=== PATIENT | male | born 1935 | race Caucasian/White ===

== ENCOUNTER 2017-07-02 02:39 | Inpatient (IN) ==
[2017-07-02] MEDS ORDERED: NS 1,000 ML IV ONE ×2 (02:59→04:03)
[2017-07-02] MEDS ORDERED: PIPERACILLIN/TAZOBACTAM 4.5 GM in NS 100 ML IV ONE (02:59)
[2017-07-02] MEDS ORDERED: SALINE FLUSH 10ml SYRINGE IVF PRN (02:59)
--- NOTE | 2017-07-02 03:06 | Emergency Department Report ---
Fever HPI - General Stated Complaint: Fever Time Seen by Provider: 07/02/17 02:58 Source: patient, EMS, old records reviewed, other (PCM) Mode of arrival: EMS Limitations: no limitations - History of Present Illness HPI Narrative: 82yo man presented to the ER by EMS for evaluation after a fall. Pt has had 1 week of nausea and fevers. Was evaluated by PCM 3 days ago and found to have elevated WBC and LFTs. When PCM made rounds 2 days ago, pt was improved. Tonight , pt became worse again. PCM is concerned about ascending cholangitis. Pt is mostly non-verbal. Is DNR. Left-sided hemiparesis at base. MD complaint: fever Onset (ago): day(s) Maximum Temperature: 103 F Temperature Source: oral Relieving factors: nothing Exacerbating factors: nothing Treatments prior to arrival fever: acetaminophen, ibuprofen - Related Data Home Medications Medication Instructions Recorded Confirmed Acetaminophen [Tylenol] 2 tab PO Q4HPRN #0 tab 01/02/16 07/02/17 Atorvastatin Calcium 1 tab PO HS #0 tab 01/02/16 07/02/17 Gabapentin 1 cap PO BID #0 cap 01/02/16 07/02/17 Insulin Detemir [Levemir] 12 dose SQ HS #0 vial 01/02/16 07/02/17 Tamsulosin HCl 0.4 mg PO DAILY #0 cap 01/02/16 07/02/17 Albuterol Sulfate 2.5 mg AEROSOL Q2HR PRN 07/02/17 07/02/17 Aspirin 1 tab PO DAILY 07/02/17 07/02/17 Docusate Sodium [Colace] 1 cap PO BID 07/02/17 07/02/17 Furosemide [Lasix] 1 tab PO DAILY 07/02/17 07/02/17 Lisinopril [Prinivil] 10 mg PO DAILY 07/02/17 07/02/17 Metoprolol Tartrate [Lopressor] 25 mg PO DAILY 07/02/17 07/02/17 Polyethylene Glycol 3350 [Miralax] 17 gm PO DAILY 07/02/17 07/02/17 dilTIAZem HCl [Diltiazem HCl] 1 tab PO TID 07/02/17 07/02/17 Allergies Allergy/AdvReac Type Severity Reaction Status Date / Time NKDA Allergy Unknown Uncoded 07/02/17 03:06 Review of Systems Limitations: ROS unobtainable due to patient's medical condition PFS Patient Stated Medical History Cerebrovascular Accident Yes: HEMIPLEGIA-FLACID LT Peripheral Neuropathy Yes: POLY Other HEENT SWALLOWING PROBLEMS, DYSPHAGIA Hypertension Yes Bronchitis Yes Sleep Apnea Yes Diabetes Mellitus Type 2 Yes Other GI Yes: CONSTIPATION Hx Benign Prostatic Yes Hyperplasia Hx Incontinence Yes Hx Urinary Tract Infection Yes Other RETENTION Cellulitis Yes Clostridium Difficile Yes: 11/20/16 Sepsis Yes: 11/20/16 Physical Exam - Limitations Limitations: no limitations - General General appearance: alert, obese - Normal Exams: Head:: Normocephalic without trauma Eyes:: Pupils are PERRLA w/ EOMI, No scleral icterus, irritation, or foreign bodies noted ENMT:: No facial trauma, nasal exudates, pharyngeal erythema, or exudates are noted Neck:: Full range of motion, without adenopathy Lymphatic:: No lymphadenopathy Musculoskeletal:: No tenderness, or deformity noted Integumentary:: No rashes, hives, or bruising noted Neurological:: Patient is alert Course - Consultations Consultation #1: Gen Surg: Will need admission for cont IV atbx; can surgerize if DPOA and PCM think it is worthwhile. Time: 05:50 Consultation #2: [facility] Telemed: Will accept/admit pt. Vital Signs Temperature 103 F H 07/02/17 02:40 Pulse Rate 121 H 07/02/17 02:40 Respiratory Rate 16 07/02/17 02:40 Blood Pressure 200/106 H 07/02/17 02:40 Pulse Oximetry 92 07/02/17 02:40 Temperature 100.3 F 07/02/17 05:00 Pulse Rate 100 07/02/17 05:30 Respiratory Rate 25 H 07/02/17 05:30 Blood Pressure 150/84 H 07/02/17 05:30 Pulse Oximetry 98 07/02/17 05:30 Fever - MDM Narrative Medical decision making narrative: Pt with cholelithiasis, cholecystitis, and likely pancreatic CA. Pt is DNR; has improved markedly with IVF. Will need continued IV atbx for infx. Will need to have conversation with PCM and DPOA to determine way ahead regarding dx. - Differential Diagnosis Likely: cellulitis, fever of unknown origin, gastroenteritis, community acquired pneumonia (HCAP), pyelonephritis, viral infection, sepsis, influenza - Medical Records Attestation: I reviewed the patient's medical records. - Lab Data Attestation: I reviewed the patient's lab results. Result diagrams: 07/02/17 03:17 07/02/17 03:17 Lab Results 07/02/17 07/02/17 07/02/17 Range/Units 03:17 03:17 03:17 WBC 21.6 H (4.5-11.0) T/MM3 RBC 4.94 (4.50-5.90) M/MM3 Hgb 14.6 (13.5-17.5) GM/DL Hct 44.3 (41-53) % MCV 89.7 (80-100) UM3 MCH 29.6 (26-34) UUG MCHC 33.0 (31-37) GM/DL RDW Std Deviation 47.3 (36.9-50.2) FL Plt Count 236 (130-400) T/MM3 MPV 11.6 (9.4-12.4) UM3 Immature Gran % (Auto) Not performed Neut % (Auto) Not performed Lymph % (Auto) Not performed [place] % (Auto) Not performed Eos % (Auto) Not performed Baso % (Auto) Not performed Neut # Not performed Lymph # Not performed [place] # Not performed Eos # Not performed Baso # Not performed Abs Immat Gran (auto) Not performed Neutrophils % (Manual) 86.0 H (33-66) % Band Neutrophils % 5.0 (0-6) % Lymphocytes % (Manual) 3.0 L (23-45) % Monocytes % (Manual) 6.0 (0-9.0) % Neutrophils # (Manual) 18.6 H (1.8-7.7) T/MM3 Band Neutrophils # 1.1 T/MM3 Lymphocytes # (Manual) 0.6 L (1-4.8) T/MM3 Monocytes # (Manual) 1.3 H (0-0.8) T/MM3 RBC Morph Comment Normal INR 1.29 H (0.99-1.21) Turbidity (0-20) Sodium (134-144) MEQ/L Potassium (3.6-5) MEQ/L Chloride (98-107) MEQ/L Carbon Dioxide (22-30) MEQ/L Anion Gap (5-15) MEQ/L BUN (9-20) MG/DL Creatinine (0.8-1.5) MG/DL GFR Calculation BUN/Creatinine Ratio (6-26) RATIO Glucose (75-110) MG/DL Calculated Osmolality (261-280) MOSM/KG Calcium (8.4-10.2) MG/DL Total Bilirubin (0.20-1.30) MG/DL Icterus Index (0-7) AST (17-59) U/L ALT (21-72) U/L Alkaline Phosphatase (38-126) U/L B-Natriuretic Peptide (0-175) pg/mL Total Protein (6.3-8.2) G/DL Albumin (3.5-5.0) G/DL Globulin (2.4-3.6) G/DL Albumin/Globulin Ratio (1.1-2.2) RATIO Lipase 26 (23-300) U/L Plasma Lactate 1.8 (0.6-2.2) MMOL/L Specimen Hemolysis (0-25) Ur Collection Type Urine Color (YELLOW) Urine Clarity Urine pH (5.0-8.0) Ur Specific [place] (1.015-1.025) Urine Protein (NEGATIVE) Urine Glucose (UA) (NEGATIVE) Urine Ketones (NEGATIVE) Urine Occult Blood (NEGATIVE) Urine Nitrate (NEGATIVE) Urine Bilirubin (NEGATIVE) Urine Urobilinogen (NORMAL) EU/DL Ur Leukocyte Esterase (NEGATIVE) Urine RBC (0-3) /HPF Urine WBC (0-5) /HPF Amorphous Sediment Urine Bacteria (NEGATIVE) Ur Culture Indicated? 07/02/17 07/02/17 Range/Units 03:17 03:29 WBC (4.5-11.0) T/MM3 RBC (4.50-5.90) M/MM3 Hgb (13.5-17.5) GM/DL Hct (41-53) % MCV (80-100) UM3 MCH (26-34) UUG MCHC (31-37) GM/DL RDW Std Deviation (36.9-50.2) FL Plt Count (130-400) T/MM3 MPV (9.4-12.4) UM3 Immature Gran % (Auto) Neut % (Auto) Lymph % (Auto) [place] % (Auto) Eos % (Auto) Baso % (Auto) Neut # Lymph # [place] # Eos # Baso # Abs Immat Gran (auto) Neutrophils % (Manual) (33-66) % Band Neutrophils % (0-6) % Lymphocytes % (Manual) (23-45) % Monocytes % (Manual) (0-9.0) % Neutrophils # (Manual) (1.8-7.7) T/MM3 Band Neutrophils # T/MM3 Lymphocytes # (Manual) (1-4.8) T/MM3 Monocytes # (Manual) (0-0.8) T/MM3 RBC Morph Comment INR (0.99-1.21) Turbidity < 20 (0-20) Sodium 145 H (134-144) MEQ/L Potassium 3.7 (3.6-5) MEQ/L Chloride 104 (98-107) MEQ/L Carbon Dioxide 26 (22-30) MEQ/L Anion Gap 15 (5-15) MEQ/L BUN 25.0 H (9-20) MG/DL Creatinine 1.4 (0.8-1.5) MG/DL GFR Calculation 49 BUN/Creatinine Ratio 18 (6-26) RATIO Glucose 187 H (75-110) MG/DL Calculated Osmolality 288 H (261-280) MOSM/KG Calcium 9.0 (8.4-10.2) MG/DL Total Bilirubin 1.60 H (0.20-1.30) MG/DL Icterus Index < 2 (0-7) AST 59 (17-59) U/L ALT 170 H (21-72) U/L Alkaline Phosphatase 255 H (38-126) U/L B-Natriuretic Peptide 1440 H (0-175) pg/mL Total Protein 7.9 (6.3-8.2) G/DL Albumin 4.1 (3.5-5.0) G/DL Globulin 3.8 H (2.4-3.6) G/DL Albumin/Globulin Ratio 1.1 (1.1-2.2) RATIO Lipase (23-300) U/L Plasma Lactate (0.6-2.2) MMOL/L Specimen Hemolysis 17 (0-25) Ur Collection Type Urine, clean catch Urine Color Yellow (YELLOW) Urine Clarity Clear Urine pH 5.5 (5.0-8.0) Ur Specific [place] 1.025 (1.015-1.025) Urine Protein 3+ A (NEGATIVE) Urine Glucose (UA) Negative (NEGATIVE) Urine Ketones Negative (NEGATIVE) Urine Occult Blood 3+ A (NEGATIVE) Urine Nitrate Negative (NEGATIVE) Urine Bilirubin 1+ A (NEGATIVE) Urine Urobilinogen 1.0 (NORMAL) EU/DL Ur Leukocyte Esterase Negative (NEGATIVE) Urine RBC 10-20 H (0-3) /HPF Urine WBC None seen (0-5) /HPF Amorphous Sediment Few Urine Bacteria None seen (NEGATIVE) Ur Culture Indicated? Cult not indicated - Radiology Data Attestation: I reviewed the patient's radiology results. CT Abd/Pelv: FINDINGS: Artifacts: Study is degraded by motion artifact in both upper extremities overlying the abdomen causing extensive streak artifact. Lower thorax: No acute findings. ABDOMEN: Liver: There is again noted a 2 cm hepatic cyst in the 6 hepatic segment. Liver is otherwise unremarkable. Gallbladder and bile ducts: Gallbladder is contracted and there is a subcentimeter gallstone. Gallbladder wall thickening present there is pericholecystic edema. No ductal dilation. Pancreas: Assessment of the pancreas is limited, however there are 2 cystic lesions identified which are new compared to prior study and are found in the tail of the pancreas measuring 1.6 x 1.8 cm and a second one is in the pancreatic neck measuring 2.2 x 1.8 cm. And is likely a pancreatic head cystic lesion measuring 1.4 x 1.3 cm. No ductal dilation. Spleen: Unremarkable. No splenomegaly. Adrenals: Unremarkable. No mass. Kidneys and ureters: Again noted is a simple large exophytic left lower renal pole cyst measuring 7.6 x 8.4 cm. Multiple additional bilateral simple renal cysts present. Mild to moderate bilateral diffuse renal cortical thinning. No solid mass. No hydronephrosis. Stomach and bowel: There is colonic diverticulosis, but no acute diverticulitis. No mucosal thickening. No obstruction. Appendix: Appendix is normal in caliber and there is no periappendiceal inflammatory changes. No evidence of acute appendicitis. PELVIS: Bladder: There is a Whitten catheter within a decompressed bladder. Bladder is unremarkable. Reproductive: Prostate gland is enlarged measuring 5.6 x 4.5 cm. ABDOMEN and PELVIS: Intraperitoneal space: Unremarkable. No free air. No significant fluid collection. Bones/joints: Multilevel thoracolumbar spondylosis present. There are multilevel moderate to severe spinal canal stenosis most significant at L3-4 vertebral level. Multilevel bilateral moderate to severe neural foraminal stenosis of the lumbar spine. No acute fracture. No dislocation. Soft tissues: Unremarkable. Vasculature: Unremarkable. No abdominal aortic aneurysm. Lymph nodes: Unremarkable. No enlarged lymph nodes. IMPRESSION: 1. Cholelithiasis, contracted thickened walled gallbladder and pericholecystic edema. Chronic cholecystitis cannot be excluded. 2. Multiple pancreatic cystic masses as described above. These may represent cystic neoplasm of pancreas such as central ductal or branch ductal mucinous neoplasm of pancreas. Much less likely considerations are pseudoaneurysms. 3. Other nonemergent findings as described above. Disposition Clinical Impression: Cholecystitis, Pancreatic cyst Cholelithiasis Qualifiers: Cholelithiasis location: gallbladder Cholecystitis presence: with cholecystitis Cholecystitis acuity: acute Biliary obstruction: with biliary obstruction Qualified Code(s): K80.01 - Calculus of gallbladder with acute cholecystitis with obstruction [place] [facility] [place] Prescriptions: No Action Atorvastatin Calcium 1 tab PO HS #0 tab Acetaminophen [Tylenol] 2 tab PO Q4HPRN #0 tab Gabapentin 1 cap PO BID #0 cap Lisinopril [Prinivil] 10 mg PO DAILY Metoprolol Tartrate [Lopressor] 25 mg PO DAILY Docusate Sodium [Colace] 1 cap PO BID Polyethylene Glycol 3350 [Miralax] 17 gm PO DAILY Aspirin 1 tab PO DAILY dilTIAZem HCl [Diltiazem HCl] 1 tab PO TID Albuterol Sulfate 2.5 mg AEROSOL Q2HR PRN PRN Reason: Shortness Of Air/Wheezing Insulin Detemir [Levemir] 12 dose SQ HS #0 vial Tamsulosin HCl 0.4 mg PO DAILY #0 cap Furosemide [Lasix] 1 tab PO DAILY Referrals: Christiano Garibay DO [Physician] - Christy Velarde MD [Physician] - Time of Disposition: 06:07 - Seen By: physician
--- OUTSIDE RECORDS SUMMARY | 2017-07-02 03:30 | External Medical Summary | Continuity of Care Document ---
:1935 Author Organization [facility] Allergies Active Description Code Type Severity Reaction Onset Reported/ Identified Relationship Clinical to Patient Status Yes No Allergy No Drug Unknown N/A 07/17/2015 Information Aller Aller Available gy gy Infor matio n Avail able Yes No Known No Drug Unknown N/A 07/17/2015 Allergies Known Aller Aller gy gies Yes No Known NKMA N/A N/A 11/13/2015 Allergies Medications Problems Date Dx Attending Type Code Diagnosis Diagnosed By Coded 07/17/2015 Jean HENSLEY, F E11.9 TYPE 2 DIABETES Ilene N MELLITUS WITHOUT COMPLICATIONS 07/17/2015 Jean HENSLEY, F E66.01 MORBID (SEVERE) Ilene N OBESITY DUE TO EXCESS CALORIES 07/17/2015 Jean HENSLEY, F G81.94 HEMIPLEGIA, Ilene N UNSPECIFIED AFFECTING LEFT NONDOMINANT 07/17/2015 Jean HENSLEY, F I12.9 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-4/UNSP 07/17/2015 Jean HENSLEY, F I61.1 NONTRAUMATIC INTCRBL Ilene N HEMORRHAGE IN HEMISPHERE, COR 07/17/2015 Jean HENSLEY, F I62.01 NONTRAUMATIC ACUTE Ilene N SUBDURAL HEMORRHAGE 07/17/2015 Jean HENSLEY, A I62.9 NONTRAUMATIC Ilene N INTRACRANIAL HEMORRHAGE, UNSPECIFIED 07/17/2015 Jean HENSLEY, F J69.0 PNEUMONITIS DUE TO Ilene N INHALATION OF FOOD AND VOMIT 07/17/2015 Jean HENSLEY, F M10.9 GOUT, UNSPECIFIED Ilene N 07/17/2015 Jean HENSLEY, F N18.2 CHRONIC KIDNEY Ilene N DISEASE, STAGE 2 (MILD) 07/17/2015 Jean HENSLEY, F R13.10 DYSPHAGIA, Ilene N UNSPECIFIED 07/17/2015 Jean HENSLEY, F Z68.28 BODY MASS INDEX Ilene N (BMI) 28.0-28.9, ADULT 11/13/2016 Venecia HENSLEY, F A41.9 SEPSIS, UNSPECIFIED Alin L ORGANISM 11/13/2016 Venecia HENSLEY, F E11.9 TYPE 2 DIABETES Alin L MELLITUS WITHOUT COMPLICATIONS 11/13/2016 Venecia HENSLEY, F E66.01 MORBID (SEVERE) Alin L OBESITY DUE TO EXCESS CALORIES 11/13/2016 Venecia HENSLEY, F E78.5 HYPERLIPIDEMIA, Alin L UNSPECIFIED 11/13/2016 Venecia HENSLEY, F G92 TOXIC ENCEPHALOPATHY Alin L 11/13/2016 Venecia HENSLEY, F I12.9 HYPERTENSIVE CHRONIC Alin L KIDNEY DISEASE W STG 1-4/UNSP 11/13/2016 Venecia HENSLEY, F I48.91 UNSPECIFIED ATRIAL Alin L FIBRILLATION 11/13/2016 Venecia HENSLEY, F K81.0 ACUTE CHOLECYSTITIS Alin L 11/13/2016 Venecia HENSLEY, F M10.9 GOUT, UNSPECIFIED Alin L 11/13/2016 Venecia HENSLEY, F N17.9 ACUTE KIDNEY Alin L FAILURE, UNSPECIFIED 11/13/2016 Venecia HENSLEY, F N18.3 CHRONIC KIDNEY Alin L DISEASE, STAGE 3 (MODERATE) 11/13/2016 Venecia HENSLEY, F N40.0 BENIGN PROSTATIC Alin L HYPERPLASIA WITHOUT LOWER URINRY 11/13/2016 Venecia HENSLEY, Soren R10.9 UNSPECIFIED Alin L ABDOMINAL PAIN 11/13/2016 Venecia HENSLEY, F R65.20 SEVERE SEPSIS Alin L WITHOUT SEPTIC SHOCK 11/13/2016 Venecia HENSLEY, F Z66 DO NOT RESUSCITATE Alin L 11/13/2016 Venecia HENSLEY, F Z68.29 BODY MASS INDEX Alin L (BMI) 29.0-29.9, ADULT 11/13/2016 Venecia HENSLEY, F 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 11/13/2016 Venecia HENSLEY, F 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), 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 Procedures Code Description Performed By Performed On 07/17/2015 [id number] INSERTION OF FEEDING DEVICE INTO STOMACH, Robin Banks MD 11/13/2016 [id number] DRAINAGE OF GALLBLADDER WITH DRAINAGE DEVICE, [facility] 11/25/2016 [id number] Subsequent nursing facility care, per day, for the evaluation and management of a patient, which requires at least 2 of these 3 kumar components: A detailed interval history; A detailed examination; Med 03/31/2017 [id number] Subsequent nursing facility care, per day, for the evaluation and management of a patient, which requires at least 2 of these 3 kumar components: A problem focused interval history; A problem focused ex 05/26/2017 [id number] Subsequent nursing facility care, per day, for the evaluation and management of a patient, which requires at least 2 of these 3 kumar components: A problem focused interval history; A problem focused ex Encounters ACCT No. Visit Discharge Status Pt. Type Provider Facility Loc./Unit Complaint Date/Time [id number] 06/28/2017 06/28/2017 DIS Outpatien Goering, [facility] fever. 05 11:15:00 23:59:00 [facility] urine. itchy. rash on groin [id number] 05/26/2017 05/26/2017 DIS Outpatien Goering, [facility] nh visit 96 10:09:00 23:59:00 t [facility] [id number] 04/01/2017 04/01/2017 DIS Outpatien Goering, [facility] nursing 84 14:39:00 23:59:00 t [facility] [id number] 11/25/2016 11/25/2016 DIS Outpatien Goering, [facility] NHV [place] 26 15:01:00 23:59:00 t [facility] 2.15.17 [id number] 01/02/2016 01/02/2016 DIS Outpatien Ryder, [facility] HOARSE 01 10:16:00 23:59:00 [facility] THROAT AND TEMP [id number] 11/13/2015 11/13/2015 DIS Outpatien Ryder, [facility] cellulitus 60 13:28:00 23:59:00 [facility] head.ear [id number] 11/13/2016 11/20/2016 DIS Inpatient Venecia Strat[place]7TN 98 08:32:00 13:23:[address] [facility] [id number] 07/17/2015 08/01/2015 DIS Inpatient Jean Stratton10TN 13 12:44:00 15:34:00 , [facility]
--- OUTSIDE RECORDS SUMMARY | 2017-07-02 03:30 | External Medical Summary | Summary of Care ---
:1935 Author Name Herminia COOK Mana Address [address] Unavailable [place], [place] [id number] Care Team Providers Name Role Phone Sean Sim M.D. Unavailable Unavailable aMna Hope APRN Unavailable Unavailable Unavailable Unavailable Unavailable Functional Status Functional Status Health Issues Name Dates Details Functional status health issues are not documented Status: Cognitive Status Health Issues Name Dates Details Cognitive status health issues are not documented Status: Problems Name Dates Details Gout (274.9, M10.9) Status: Active Acute upper respiratory infection (465.9, J06.9) Status: Active Medications Name Dates Details Triamterene-HCTZ 75-50 MG Oral Tablet Refills: 0 Ortiz Sim M.D. Started 21-Jul-2011 ActiveLisinopril 20 MG Oral Tablet Refills: 0 Ortiz Sim M.D. Started 21-Jul-2011 ActivePropranolol HCl - 80 MG Oral Tablet Refills: 0 Ortiz Sim M.D. Started 21-Jul-2011 ActiveAmoxicillin-Pot Clavulanate 875-125 MG Oral Tablet 1 tablet BID x 10 days Quantity: 20 Refills: 0 Mana Hope APRN Started 15-Jan-2015 Ended 25-Jan-2015 Active Allergies and Adverse Reactions Name Dates Details Codeine Derivatives Status: Active Procedures Procedure Dates Details Procedures not documented Immunization Name Dates Details Immunizations not documented Social History Name Dates Details Smoking StatusNever smoker Vital Signs Date Test Result Details 15-Jan-2015 12:13 BP Systolic 182 mm[Hg] Status: BP Diastolic 115 mm[Hg] Status: Heart Rate 100 /min Status: Temperature 100.2 f Status: Weight 225 lb Status: O2 SAT 98 % Status: Body Mass Index Calculated 33.23 kg/m2 Status: Body Surface Area Calculated 2.17 m2 Status: Results Date Description Value Details Results not documented Plan of Care Planned Observations Name Dates Details Planned Goals not documented Goal Instructions Instructions not documented Encounters Appointment; Mana Hope On 15-Jan-2015 Encounter Diagnosis: Problem not documented 12:05 Appointment; Joaquim De La Torre On 08-Sep-2014 Encounter Diagnosis: Problem not documented 12:30
--- OUTSIDE RECORDS SUMMARY | 2017-07-02 03:30 | External Medical Summary | Referral Summary ---
:1935 Author Organization [facility] Address [address] [place] [address] [place] [id number] Care Team Providers Name Role Phone Erlin Garza V Primary Care Physician Encounter VC Date(s): 11/13/15 - 11/13/15 [facility] [address] [place] [id number]- Discharge Diagnosis: Cellulitis Discharge Disposition: 01-Home or Self Care Attending Physician: Jose Ryder APRN Admitting Physician: Jose Ryder APRN Vital Signs Most recent to oldest [Reference Range]: 1 Temperature Tympanic [36.6-38.1 degC] 37.7 degC (11/13/15 1:50 PM) Peripheral Pulse Rate [60-100 bpm] 78 bpm (11/13/15 1:50 PM) Respiratory Rate [14-20 br/min] 18 br/min (11/13/15 1:50 PM) Blood Pressure [90-140/60-90 mmHg] 120/68 mmHg (11/13/15 1:50 PM) SpO2 92 % (11/13/15 1:50 PM) Problem List No data available for this section Allergies, Adverse Reactions, Alerts No Known Allergies Medications albuterol 2.5 mg/3 mL (0.083%) inhalation solution 2.5 mg 3 mL, Inhalation, q2hr, as needed for wheezing, 0 Refill(s) Start Date: 11/13/15 Status: OrderedamLODIPine 2.5 mg oral tablet 2.5 mg 1 tabs, Oral, Daily, # 30 tabs, 0 Refill(s) Start Date: 11/13/15 Status: Orderedatorvastatin 80 mg oral tablet 80 mg 1 tabs, Oral, Daily, # 30 tabs, 0 Refill(s) Start Date: 11/13/15 Status: Ordereddocusate sodium 100 mg oral capsule 100 mg 1 caps, Oral, BID, as needed for constipation, # 20 caps, 0 Refill(s) Start Date: 11/13/15 Status: Orderedgabapentin 300 mg oral capsule 300 mg 1 caps, Oral, BID, # 60 caps, 0 Refill(s) Start Date: 11/13/15 Status: OrderedhydrALAZINE 25 mg oral tablet 25 mg 1 tabs, Oral, TID, # 90 tabs, 0 Refill(s) Start Date: 11/13/15 Status: OrderedLasix 20 mg oral tablet 20 mg 1 tabs, Oral, Daily, # 90 tabs, 0 Refill(s) Start Date: 11/13/15 Status: Orderedlisinopril 20 mg oral tablet 20 mg 1 tabs, Oral, Daily, # 30 tabs, 0 Refill(s) Start Date: 11/13/15 Status: Orderedmetoprolol tartrate 50 mg oral tablet 50 mg 1 tabs, Oral, BID, # 60 tabs, 0 Refill(s) Start Date: 11/13/15 Status: Orderedtamsulosin 0.4 mg oral capsule 0.4 mg 1 caps, Oral, Daily, # 30 caps, 0 Refill(s) Start Date: 11/13/15 Status: OrderedTylenol Caplet 325 mg, Oral, q4hr, as needed for pain, 2 tabs, 0 Refill(s) Start Date: 11/13/15 Status: Ordered Results Hematology Most recent to oldest [Reference Range]: 1 WBC [4.8-10.8 10*3/uL] 19.2 10*3/uL *HI* (11/13/15 3:05 PM) RBC [4.60-6.20] 4.59 *LOW* (11/13/15 3:05 PM) Hgb [14.0-18.0 gm/dL] 14.3 gm/dL (11/13/15 3:05 PM) Hct [42.0-52.0 %] 43.1 % (11/13/15 3:05 PM) MCV [82.0-99.0 fL] 93.9 fL (11/13/15 3:05 PM) MCH [27.0-32.0 pg] 31.2 pg (11/13/15 3:05 PM) MCHC [32.0-36.0 gm/dL] 33.2 gm/dL (11/13/15 3:05 PM) RDW [11.5-14.5 %] 14.1 % (11/13/15 3:05 PM) Platelet [150-400 10*3/uL] 252 10*3/uL (11/13/15 3:05 PM) MPV [8.8-14.8 fL] 11.6 fL (11/13/15 3:05 PM) Immature Granulocytes [0.0-1.0 %] 0.5 % (11/13/15 3:05 PM) Neutrophils [51-75 %] 78 % *HI* (11/13/15 3:05 PM) Lymphocytes [20-46 %] 8 % *LOW* (11/13/15 3:05 PM) Monocytes [4-11 %] 10 % (11/13/15 3:05 PM) Eosinophils [0-4 %] 3 % (11/13/15 3:05 PM) Basophils [0-2 %] 0 % (11/13/15 3:05 PM) Neutro Absolute [1.90-7.00 10*3] 14.90 10*3 *HI* (11/13/15 3:05 PM) Lymph Absolute [0.80-3.30 10*3] 1.61 10*3 (11/13/15 3:05 PM) [place] Absolute [0.30-1.00 10*3] 2.00 10*3 *HI* (11/13/15 3:05 PM) Eos Absolute [0.00-0.50 10*3] 0.51 10*3 *HI* (11/13/15 3:05 PM) Baso Absolute [0.00-0.20 10*3] 0.04 10*3 (11/13/15 3:05 PM) Chemistry Most recent to oldest [Reference Range]: 1 Sodium Lvl [135-144 mEq/L] 144 mEq/L (11/13/15 3:05 PM) Potassium Lvl [3.5-5.2 mEq/L] 3.8 mEq/L (11/13/15 3:05 PM) Chloride [99-111 mEq/L] 104 mEq/L (11/13/15 3:05 PM) CO2 [23-31 mEq/L] 28 mEq/L (11/13/15 3:05 PM) AGAP [3-20] 12 (11/13/15 3:05 PM) BUN [8-26 mg/dL] 21 mg/dL (11/13/15 3:05 PM) Glucose Lvl [70-99 mg/dL] 123 mg/dL *HI* (11/13/15 3:05 PM) Creatinine Lvl [0.72-1.25 mg/dL] 1.34 mg/dL *HI* (11/13/15 3:05 PM) eGFR [>60 mL/min] 51 mL/min 1 *ABN* (11/13/15 3:05 PM) Calcium Lvl [8.9-10.5 mg/dL] 9.2 mg/dL (11/13/15 3:05 PM) 1Result Comment: Multiply eGFR results by 1.21 for race. Immunizations No data available for this section Procedures No data available for this section Social History Social History Type Response Smoking Status Never smoker Assessment and Plan No data available for this section
--- OUTSIDE RECORDS SUMMARY | 2017-07-02 03:30 | External Medical Summary | Referral Summary ---
:1935 Author Organization [facility] Address [address] [place] [address] [place] [phone] Care Team Providers Name Role Phone Erlin Garza V Primary Care Physician Encounter VC Date(s): 11/25/16 - 11/25/16 [facility] [place] [id number]- Discharge Disposition: 01-Home or Self Care Attending Physician: Erlin Garza MD Admitting Physician: Erlin Garza MD Vital Signs No data available for this section Problem List Condition Effective Dates Status Health Status Informant Methicillin resistant Staphylococcus Active aureus(Confirmed)1 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 Allergies, Adverse Reactions, Alerts No Known Allergies Medications albuterol 2.5 mg/3 mL (0.083%) inhalation solution 2.5 mg 3 mL, Inhalation, q2hr, as needed for wheezing, 0 Refill(s) Start Date: 11/13/15 Status: OrderedamLODIPine 2.5 mg oral tablet See Instructions, TAKE ONE TABLET BY MOUTH EVERY DAY, # 30 tabs, 5 Refill(s), eRx: [facility], TAKE ONE TABLET BY MOUTH EVERY DAY Start Date: 03/18/16 Status: Orderedatorvastatin 80 mg oral tablet See Instructions, TAKE ONE TABLET BY MOUTH AT BEDTIME, # 30 tabs, 5 Refill(s), [facility] Start Date: 09/22/16 Status: Ordereddextromethorphan-guaiFENesin 5 mg-100 mg/5 mL oral liquid 5 mL, Oral, q6hr, as needed for cough, 0 Refill(s) Start Date: 01/07/16 Status: TrckbinBmx-M-Fqyz 100 mg oral capsule See Instructions, TAKE ONE CAPSULE BY MOUTH TWICE DAILY, # 60 caps, eRx: [facility] Start Date: 10/23/16 Status: Orderedfurosemide 20 mg oral tablet See Instructions, TAKE ONE TABLET BY MOUTH EVERY DAY, # 30 tabs, 5 Refill(s), eRx: [facility] Start Date: 09/22/16 Status: Orderedgabapentin 300 mg oral capsule See Instructions, TAKE ONE CAPSULE BY MOUTH TWICE DAILY, # 60 caps, 11 Refill(s) , eRx: [facility], TAKE ONE CAPSULE BY MOUTH TWICE DAILY Start Date: 04/23/16 Status: OrderedhydrALAZINE 25 mg oral tablet 25 mg 1 tabs, Oral, TID, # 90 tabs, 0 Refill(s) Start Date: 11/13/15 Status: OrderedLevemir 12 units, SubCutaneous, Bedtime (once a day), 0 Refill(s) Start Date: 01/07/16 Status: Orderedlisinopril 20 mg oral tablet See Instructions, TAKE ONE TABLET BY MOUTH EVERY DAY, # 30 tabs, 2 Refill(s), eRx: [facility], TAKE ONE TABLET BY MOUTH EVERY DAY Start Date: 09/14/16 Status: OrderedMetoprolol Tartrate 50 mg oral tablet See Instructions, TAKE ONE TABLET BY MOUTH EVERY TWELVE HOURS (Hold FOR H.R. &lt ; 55, SBP <120), # 60 tabs, 11 Refill(s), eRx: [facility], TAKE ONE TABLET BY MOUTH EVERY TWELVE HOURS (HoldFOR H.R. < 55, SBP <120) Start Date: 04/23/16 Status: Orderedtamsulosin 0.4 mg oral capsule See Instructions, TAKE ONE CAPSULE BY MOUTH EVERY DAY, # 30 caps, 2 Refill(s), eRx: [facility], TAKE ONE CAPSULE BY MOUTH EVERY DAY Start Date: 09/14/16 Status: OrderedTylenol Caplet 325 mg, Oral, q4hr, as needed for pain, 2 tabs, 0 Refill(s) Start Date: 11/13/15 Status: Ordered Results No data available for this section Immunizations No data available for this section Procedures No data available for this section Social History Social History Type Response Smoking Status Never smoker Assessment and Plan No data available for this section
--- OUTSIDE RECORDS SUMMARY | 2017-07-02 03:30 | External Medical Summary | Referral Summary ---
:1935 Author [facility] Address [address] [place] [address] [place] [phone] Care Team Providers Name Role Phone Erlin Garza V Primary Care Physician Encounter VC Date(s): 01/02/16 - 01/02/16 [facility] [place] [phone]- Discharge Disposition: 01-Home or Self Care Attending Physician: Jose Ryder APRN Admitting Physician: Jose Ryder APRN Referring Physician: Erlin Garza MD Vital Signs Most recent to oldest [Reference Range]: 1 Temperature Tympanic [36.6-38.1 degC] 38.2 degC *HI* (01/02/16 10:20 AM) Peripheral Pulse Rate [60-100 bpm] 116 bpm *HI* (01/02/16 10:20 AM) Blood Pressure [90-140/60-90 mmHg] 160/100 mmHg *HI* (01/02/16 10:20 AM) SpO2 93 % (01/02/16 10:20 AM) Problem List Condition Effective Dates Status Health Status Informant Methicillin resistant Staphylococcus Active aureus(Confirmed)1 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 Allergies, Adverse Reactions, Alerts No Known Allergies [...] recent to oldest [Reference Range]: 1 WBC [5.0-10.0 10*3/uL] 11.5 10*3/uL *HI* (01/02/16 11:15 AM) RBC [3.70-5.20] 4.88 (01/02/16 11:15 AM) Hgb [12.0-16.0 gm/dL] 15.2 gm/dL (01/02/16 11:15 AM) Hct [40.0-54.0 %] 44.9 % (01/02/16 11:15 AM) MCV [80.0-96.0 fL] 92.0 fL (01/02/16 11:15 AM) MCH [26.0-34.0 pg] 31.1 pg (01/02/16 11:15 AM) MCHC [32.0-36.0 gm/dL] 33.9 gm/dL (01/02/16 11:15 AM) RDW [0.0-14.5 %] 14.4 % (01/02/16 11:15 AM) Platelet [150-400 10*3/uL] 195 10*3/uL (01/02/16 11:15 AM) MPV [8.8-14.8 fL] 10.7 fL (01/02/16 11:15 AM) Neutrophils [50-70 %] 82 % *HI* (01/02/16 11:15 AM) Lymphocytes [20-40 %] 5 % *LOW* (01/02/16 11:15 AM) Monocytes [4-8 %] 11 % *HI* (01/02/16 11:15 AM) Eosinophils [0-6 %] 1 % (01/02/16 11:15 AM) Basophils [0-2 %] 0 % (01/02/16 11:15 AM) Neutro Absolute [2.50-7.00 10*3] 9.42 10*3 *HI* (01/02/16 11:15 AM) Lymph Absolute [1.00-4.00 10*3] 0.62 10*3 *LOW* (01/02/16 11:15 AM) [place] Absolute [0.20-0.80 10*3] 1.26 10*3 *HI* (01/02/16 11:15 AM) Eos Absolute [0.00-0.60 10*3] 0.16 10*3 (01/02/16 11:15 AM) Baso Absolute [0.00-0.30] 0.03 (01/02/16 11:15 AM) Chemistry Most recent to oldest [Reference Range]: 1 Sodium Venous [136-145 mmol/L] 143 mmol/L (01/02/16 11:15 AM) Potassium Venous [3.5-5.1 mmol/L] 3.6 mmol/L 1 (01/02/16 11:15 AM) Calcium Ionized Venous [1.10-1.30 mmol/L] 1.10 mmol/L (01/02/16 11:15 AM) Total CO2 Venous [24-29 mmol/L] 23 mmol/L *LOW* (01/02/16 11:15 AM) Glucose Venous [70-100 mg/dL] 157 mg/dL *HI* (01/02/16 11:15 AM) BUN Venous [8-26] 16 (01/02/16 11:15 AM) Creatinine Venous [0.7-1.3 mg/dL] 1.2 mg/dL (01/02/16 11:15 AM) Venous CL [98-109 mmol/L] 106 mmol/L (01/02/16 11:15 AM) 1Result Comment: This test was performed on a whole blood specimen. The presence or absence of hemolysis cannot be assessed. Hemolysis can falsely elevate potassium levels. Normals are for venous specimens only. Immunizations No data available for this section Procedures No data available for this section Social History Social History Type Response Smoking Status Never smoker Assessment and Plan No data available for this section
[2017-07-02] MEDS ORDERED: NS 100 ML ONE (04:24)
[2017-07-02] MEDS ORDERED: IODIXANOL 320mg/ml 100ml INJECTION IV ONE (04:25)
[2017-07-02] MEDS ORDERED: SALINE FLUSH 10ml SYRINGE ONE (04:25)
--- NOTE | 2017-07-02 07:48 | XRay Report ---
INDICATION: Fever PROCEDURE: CHEST 2-VIEWS UPRIGHT (PA & LAT) Encounter: Initial COMPARISON: January 02, 2016 FINDINGS: Lungs are hypoinflated with some mild basilar atelectasis and bronchovascular crowding. No consolidative lobar pneumonia. No pleural effusion or pneumothorax. Cardiac silhouette remains mildly enlarged. Mediastinal contours are stable. Impression: Hypoinflation. .
[2017-07-02] MEDS ORDERED: MORPHINE SULFATE 4 MG SYRINGE IVP PRN (07:50)
--- NOTE | 2017-07-02 07:52 | CT Scan Report ---
Indication: Fever, elev LFTs PROCEDURE: CT abdomen pelvis w con: Encounter: Initial Comparison: March 16, 2011 Technique: Axial CT images were performed through the abdomen and pelvis after the administration of intravenous contrast. Coronal and sagittal two-dimensional reformats. Automated Exposure Control and Iterative Reconstruction dose reducing techniques were utilized. Contrast: Visipaque 320 100 mL Findings: The lung bases show mild atelectasis. Cardiomegaly. Liver shows a small inferior cyst in the right lobe. Mild intrahepatic bile duct prominence probably related to age. Gallstone within the gallbladder. Slight pericholecystic inflammation or gallbladder wall edema. The spleen is normal. 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 There is a stable cyst in the uncinate process. Large bilateral renal cysts, showing interval growth since the prior study. No abdominal or pelvic lymphadenopathy. Whitten catheter within a decompressed bladder. Mild prostate enlargement. Sigmoid diverticulosis without diverticulitis. No bowel obstruction. The appendix is normal. Bone windows show no acute findings. Impression: 1. Cholelithiasis with possible gallbladder wall thickening versus decompressed state. Consider right upper quadrant ultrasound for further evaluation. 2. 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 There is a preliminary report by [facility]. .
--- NOTE | 2017-07-02 07:57 | History & Physical Report ---
<LambertAkilah D - Last Filed: 07/02/17 09:41> History of Present Illness Date: 07/02/17 Chief complaint: nausea and vomiting HPI: Niles Johnston is an 82 y/o male who Dr. Garza has been following recently because of fevers and n/v. He has had temps up to 102.3 at [place], and labs on showed elevations in LFTs: ALT 508, AST 256, AP 319, Total bili 3.5. WBC on that day was 13.8. His symptoms progressed and he was evaluated at [facility] on 07/02/17. Here, WBC was 21.6 with bands 5%; 2nd lactate trended up to 2.2; LFTs were high but improved from earlier: AST 59, ALT 170, AP 255; Total bili 1.6, INR 1.29. 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 He received IVF and was started on Zosyn. Dr. Lopez and the hospitalist department were both contacted and the patient was admitted for treatment of suspected severe sepsis and to further investigate the pancreatic abnormalities. The patient was seen in his room with his and his daughter. He was very tired after being up most of the night, and slept through most of my visit. He did, however awaken briefly to answer some questions, and his responses were appropriate. His N/V started 5 days ago (06/28); he's had intermittent fevers for about 2 weeks. Staff noticed he complained of generalized pain when they helped him move. They've been trying to push oral fluids. He's been very tired. Skin color has been jaundiced and per Dr. Garza's note he has had orange- colored urine. Per family, he was hospitalized for Cholecystitis in November - seen at [facility] but surgeons opted not to remove GB (not a surgical candidate). We reviewed labs and CT findings - pt was unable to make a decision to proceed with testing vs. comfort care strategy regarding possible pancreatic cancer. In discussion with his son/DPOA, he would like to have more testing done to make more informed decisions regarding treatment and goals of care. Review of Systems ROS unobtainable: due to mental status - Constitutional Constitutional: Present: fever(s) - EENMT Nose: Present: allergies, other (sinus drainage) Mouth/Throat: Present: other (dysphagia chronic ) - Cardiovascular Vascular: Present: pedal edema - Respiratory Respiratory: Present: cough (from sinus drainage) - Gastrointestinal Gastrointestinal: Present: as per HPI - Genitourinary Genitourinary: Present: as per HPI - Musculoskeletal Musculoskeletal: Present: as per HPI, other (does not ambulate) - Integumentary/Breasts Integumentary: Present: jaundice - Neurological Neurological: Absent: confusion - Psychiatric Psychiatric: Absent: anxiety, depression - Endocrine Endocrine: Present: flushing (today) - Allergic/Immunologic Allergic/Immunologic: Present: seasonal rhinorrhea PFSH Hypertension Diabetes type 2 Gout. CKD stage III. 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 Small left subdural hemorrhage Prostate cancer s/p radiation 2002 A-fib with RVR when hospitalized at [facility] in 11/2016 - gb sono showed cholelithiasis without cholecystitis & no pancreatic abnormalities; fatty infiltration of the liver; but abdominal CT showed acute cholecystitis ( pancreas was grossly normal); possible proctitis Surgical History: Perc cholecystostomy 11/2016. Peg tube inserted/removed Family History: Positive for stroke, cancer. Brother has bone cancer - Social History Smoking status: Never smoker Substance use type: does not use Alcohol intake frequency: does not drink Current occupational status: retired Medications Home Medications Medication Instructions Recorded Confirmed Type Acetaminophen [Tylenol] 2 tab PO Q4HPRN #0 tab 01/02/16 07/02/17 History Atorvastatin Calcium 1 tab PO HS #0 tab 01/02/16 07/02/17 History Gabapentin 1 cap PO BID #0 cap 01/02/16 07/02/17 History Insulin Detemir [Levemir] 12 dose SQ HS #0 vial 01/02/16 07/02/17 History Tamsulosin HCl 0.4 mg PO DAILY #0 cap 01/02/16 07/02/17 History Albuterol Sulfate 2.5 mg AEROSOL Q2HR PRN 07/02/17 07/02/17 History Aspirin 1 tab PO DAILY 07/02/17 07/02/17 History Docusate Sodium [Colace] 1 cap PO BID 07/02/17 07/02/17 History Furosemide [Lasix] 1 tab PO DAILY 07/02/17 07/02/17 History Lisinopril [Prinivil] 10 mg PO DAILY 07/02/17 07/02/17 History Metoprolol Tartrate [Lopressor] 25 mg PO DAILY 07/02/17 07/02/17 History Polyethylene Glycol 3350 [Miralax] 17 gm PO DAILY 07/02/17 07/02/17 History dilTIAZem HCl [Diltiazem HCl] 1 tab PO TID 07/02/17 07/02/17 History Allergies Allergy/AdvReac Type Severity Reaction Status Date / Time No Known Allergies Allergy Verified 07/02/17 08:24 Exam Vital Signs: Temperature 100.3 F 07/02/17 05:00 Pulse Rate 103 H 07/02/17 07:15 Respiratory Rate 25 H 07/02/17 07:15 Blood Pressure 164/93 H 07/02/17 07:15 Pulse Oximetry 98 07/02/17 07:15 - Constitutional Present: no acute distress, obese - Routine HEENT Exam Head: Present: cushingoid faces Eye: Present: conjunctival icterus ENT: Present: mucous membranes dry, oropharynx clear - Routine Neck Exam Present: supple - Routine Respiratory Exam Present: CTA bilaterally, diminished air movement - Routine Cardiovascular Exam Present: RRR, S1, S2 - Routine Abdominal Exam Present: soft, normoactive bowel sounds, distended (mild) - Routine Extremities Exam Present: edema (1+ b/l), pulses intact, normal capillary refill - Routine Skin Exam Present: pallor - Routine Neurological Exam Present: oriented X3. Absent: alert - Routine Psychiatric Exam Present: unable to assess Results - Labs CBC & Chem 7: 07/02/17 03:17 07/02/17 03:17 - Imaging and Cardiology CT scan - abdomen Additional comments: Date of Exam: 07/02/17 Type of Exam(s): CT abdomen pelvis w con Findings: The lung bases show mild atelectasis. Cardiomegaly. Liver shows a small inferior cyst in the right lobe. Mild intrahepatic bile duct prominence probably related to age. Gallstone within the gallbladder. Slight pericholecystic inflammation or gallbladder wall edema. The spleen is normal. 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 There is a stable cyst in the uncinate process. Large bilateral renal cysts, showing interval growth since the prior study. No abdominal or pelvic lymphadenopathy. Whitten catheter within a decompressed bladder. Mild prostate enlargement. Sigmoid diverticulosis without diverticulitis. No bowel obstruction. The appendix is normal. Bone windows show no acute findings. Impression: 1. Cholelithiasis with possible gallbladder wall thickening versus decompressed state. Consider right upper quadrant ultrasound for further evaluation. 2. 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 Assessment and Plan (1) Severe sepsis Current visit: Yes Status: Acute DVT Prophylaxis: SCD's Resuscitation Status: Do Not Resuscitate Assessment and Plan: IMPRESSION Severe sepsis based on lactate of 2.2 and SIRS criteria of fever, leukocytosis, tachycardia, tachypnea (2012 guidelines) Cholelithiasis with suspected chronic cholecystitis Elevated LFTs and coagulopathy with INR of 1.29 - LFTs trending down from outpatient setting Hypertension Diabetes type 2 Gout. CKD stage III. 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 Small left subdural hemorrhage Prostate cancer s/p radiation 2002 A-fib with RVR when hospitalized at [facility] in 11/2016 - gb sono showed cholelithiasis without cholecystitis & no pancreatic abnormalities; fatty infiltration of the liver; but abdominal CT showed acute cholecystitis ( pancreas was grossly normal); possible proctitis PLAN Admit, inpt status under Dr. Andrea. IVF: He had 2L of IVF bolused in the ED. He is not hypotensive nor is lactate > 4 to suggest shock. Will hold off on additional IVF at this time. 2nd lactate was high at 2.2 - will repeat later this am. Check procalcitonin. UA and CXR neg for infection. Follow results of blood cultures. Zosyn empirically. Suspected source for sepsis is GB. Consult Dr. Lopez - alayna discussed in depth with him. He reviewed CT with Dr. Wright - pancreatic cancer is actually a very very low probability. Consult Dr. Walter - alayna discussed with him. NPO; pain and nausea meds available PRN. Home meds - hold insulin and oral meds. Start metoprolol 5 mg IV q6h for elevated bp. Check BGM QID, have SSI available. Likely can DC Whitten soon. Discussed with family and with his son Pradip (DPOA) who is in [place] - proceed with workup so they can make informed decisions about treatment. DNR. Hospital Course Summary Disclaimer: The visit summary below is not to be considered part of the above Progress Note. Hospital Course: 07/02/17 IMPRESSION Severe sepsis based on lactate of 2.2 and SIRS criteria of fever, leukocytosis, tachycardia, tachypnea (2012 guidelines) Cholelithiasis with suspected chronic cholecystitis Elevated LFTs and coagulopathy with INR of 1.29 - LFTs trending down from outpatient setting Hypertension Diabetes type 2 Gout. CKD stage III. 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 Small left subdural hemorrhage Prostate cancer s/p radiation 2002 A-fib with RVR when hospitalized at [facility] in 11/2016 - gb sono showed cholelithiasis without cholecystitis & no pancreatic abnormalities; fatty infiltration of the liver; but abdominal CT showed acute cholecystitis ( pancreas was grossly normal); possible proctitis PLAN Admit, inpt status under Dr. Andrea. IVF: He had 2L of IVF bolused in the ED. He is not hypotensive nor is lactate > 4 to suggest shock. Will hold off on additional IVF at this time. 2nd lactate was high at 2.2 - will repeat later this am. Check procalcitonin. UA and CXR neg for infection. Follow results of blood cultures. Zosyn empirically. Suspected source for sepsis is GB. Consult Dr. Lopez - case discussed in depth with him. He reviewed CT with Dr. Wright - pancreatic cancer is actually a very very low probability. Consult Dr. Walter - alayna discussed with him. NPO; pain and nausea meds available PRN. Home meds - hold insulin and oral meds. Start metoprolol 5 mg IV q6h for elevated bp. Check BGM QID, have SSI available. Likely can DC Whitten soon. Discussed with family and with his son Pradip (DPOA) who is in [place] - proceed with workup so they can make informed decisions about treatment. DNR. <Hany Andrea - Last Filed: 07/02/17 18:47> History of Present Illness Date: 07/02/17 [facility] Patient Stated Medical History Cerebrovascular Accident Yes: HEMIPLEGIA-FLACID LT Peripheral Neuropathy Yes: POLY Other HEENT SWALLOWING PROBLEMS, DYSPHAGIA Hypertension Yes Bronchitis Yes Sleep Apnea Yes Diabetes Mellitus Type 2 Yes Other GI Yes: CONSTIPATION Hx Benign Prostatic Yes Hyperplasia Hx Incontinence Yes Hx Urinary Tract Infection Yes Other RETENTION Cellulitis Yes Clostridium Difficile Yes: 11/20/16 Sepsis Yes: 11/20/16 Exam Vital Signs: Temperature 100.1 F 07/02/17 08:00 Pulse Rate 98 07/02/17 16:32 Respiratory Rate 18 07/02/17 16:15 Blood Pressure 159/85 H 07/02/17 08:00 Pulse Oximetry 94 07/02/17 16:15 Height/Weight/BMI: Height 1.78 m Weight 99.6 kg Body Mass Index 31.5 Results - Labs CBC & Chem 7: 07/02/17 03:17 07/02/17 03:17 Assessment and Plan (1) Severe sepsis Current visit: Yes Status: Acute Assessment and Plan: IMPRESSION Severe sepsis based on lactate of 2.2 and SIRS criteria of fever, leukocytosis, tachycardia, tachypnea (2012 guidelines) Cholelithiasis with suspected chronic cholecystitis Elevated LFTs and coagulopathy with INR of 1.29 - LFTs trending down from outpatient setting Hypertension Diabetes type 2 Gout. CKD stage III. 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 Small left subdural hemorrhage Prostate cancer s/p radiation 2002 A-fib with RVR when hospitalized at [facility] in 11/2016 GB sono showed cholelithiasis without cholecystitis & no pancreatic abnormalities Fatty infiltration of the liver; but abdominal CT showed acute cholecystitis (pancreas was grossly normal); possible proctitis Have independently interviewed and examined pt. Chart reviewed. Case discussed with Dr Lopez, Dr Walter, and my [employer]. Care plan developed with my supervision ; agree with above. 82 y/o gentleman presents to ED secondary to temp elevation and n/v. Oral drive decreased-not hungry. Not reporting ab pain. No change in stools. More tired and washed out. In ED did flag positive for sepsis. Concern about cholecystis. Recently has had elevated LFT and Bilirubin. Patient very tired at the time of my interview and exam. Communicates appropriately, but responses slow. Gen: appears tired and weak. Lungs: decreased bilaterally, no distress on O2. CV: regular AB: soft, ND, BS present HEENT: MM dry MSE: awake, thoughts linear. Plan: Inpatient admission for treatment of severe sepsis - suspect GI source. Anticipate greater than 2 midnights of care needed. IV Zosyn for antimicrobial coverage. NPO for bowel rest. IVF for hydration support. Monitor lab and blood sugars. Consult with Dr Lopez for surgical recommendations and Dr Walter for oncological recommendations. SCD for DVT prevention. Hospital Course Summary Disclaimer: The visit summary below is not to be considered part of the above Progress Note. Addendum entered and electronically signed by Akilah Verdin, DRONE PILOT 07/02/17 10: 36: External records were reviewed extensively.
[2017-07-02] MEDS: NS 1,000 ML IV SCH ×2 (08:00→22:30)
[2017-07-02] MEDS: PIPERACILLIN/TAZOBACTAM 3.375 GM in NS 100 ML IV SCH ×3 (08:48→20:05)
[2017-07-02 08:58] VITALS: BMI 31.5
[2017-07-02] MEDS ORDERED: ALBUTEROL 2.5mg/3ml (0.083%) NEB AEROSOL PRN (09:05)
--- NOTE | 2017-07-02 10:11 | Ultrasound Report ---
Indication: poss pancreatic ca; gb disease PROCEDURE: US gall bladder: Encounter: Initial Comparison: CT abdomen dated July 02, 2017 Technique: Grayscale and color Doppler sonographic imaging of the right upper quadrant of the abdomen was performed. Findings: Hepatic parenchyma sonographically dense with a small cyst in the right lobe as noted on CT. The gallbladder is abnormal with wall thickening over 6 mm in thickness. The gallbladder is fairly contracted however. There are shadowing gallstones present in the neck. Sonographic Henning's sign was reportedly negative. Both the intra and extrahepatic biliary system are of normal caliber with the common duct measuring 6 mm in dimension. Pancreas again shows several cystic lesions. The largest lesion in the head measures 2.4 x 1.7 x 1.6 cm in size. No internal Doppler flow seen. The right kidney is present without collecting system dilatation. The right kidney measures 11.8 cm in length. Bilateral renal cysts. Impression: 1. Abnormal gallbladder that could be due to acute or chronic cholecystitis. Nuclear medicine hepatobiliary scan may be helpful for further evaluation. 2. Hepatic steatosis. 3. 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 .
[2017-07-02] MEDS ORDERED: HYDROMORPHONE 2 MG/ML INJECTION IVP PRN (10:30)
[2017-07-02] MEDS: METOPROLOL 5mg/5ml INJECTION IVP SCH ×3 (10:50→21:13)
--- NOTE | 2017-07-02 12:02 | Consult Note ---
Oncology HPI - Data of Consult Patient: new to practice <Beatrice Murray Sean - 07/02/17 12:02> Consult date: 07/02/17 <Beatrice Murray Sean - 07/02/17 12:02> Requesting Physician: Dr. Andrea <Ruben Walter - 07/02/17 14:57> Heather Ramos MD <Beatrice Murray - 07/02/17 13:43> Primary Care Provider: MD Erlin Nesbitt MD <Ruben Walter - 07/02/17 14:57> Nick Gutierrez MD <Beatrice Murray - 07/02/17 13:43> Family Provider: Nick Gutierrez MD <Ruben Walter - 07/02/17 14:57> Nikc Gutierrez MD <Beatrice Murray - 07/02/17 13:43> - Consult Narrative Reason for consult: possible pancreatic cancer <Beatrice Murray - 07/02/17 13: 43> History of present illness: He apparently had percutaneous drainage of gallbladder wall at [facility]. He presented today with leukocytosis, fever, left shift, left upper quadrant pain and findings consistent with acute cholecystitis. He is not a surgical candidate. He has CT findings within his pancreas that is been present since 2010. There are 2 lesions that have slightly increased in the interim. <Ruben Walter - 07/02/17 14:57> Reclining in bed, alone in room at time of intake. He answers questions, but is slow and at times does not respond. He answers yes when asked if has had fever/ chills. Then does not reply when asked if has had nausea/vomiting. Asked patient where are you?. Replies " I am at [facility]." then told he is at [facility] and asks "did I come by ambulence?" Told yes. He presented to [facility] by EMS after a fall at home. Has had elevated WBC's and fevers- labs on 06/28/17 showed elevations in LFTs: ALT 508, AST 256, AP 319, Total bili 3.5. WBC on that day was 13.8. His symptoms progressed and after fall , was evaluated at [facility] ED on 07/02/17. WBC was 21.6 with bands 5%; 2nd lactate trended up to 2.2; LFTs were high but improved from earlier: AST 59, ALT 170, AP 255; Total bili 1.6, INR 1.29. 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 He received IVF and was started on Zosyn, and was admitted for treatment of suspected severe sepsis and to further investigate the pancreatic abnormalities. Of note, he had cholecystitis in Nov 2016 and was hospitalized at [facility] in [place]. Deemed not a surgical candidate. <Beatrice Murray - 07/02/17 13:43> Review of Systems ROS unobtainable: due to mental status (Patient memory and document history of current events limit the ability to obtain review of systems) <Ruben Walter - 07/02/17 14:57> Review of systems: Not able to obtain due to mental status <Beatrice Murray - 07/02/17 13:43> [facility] Patient Stated Medical History Cerebrovascular Accident Yes: HEMIPLEGIA-FLACID LT Peripheral Neuropathy Yes: POLY Other HEENT SWALLOWING PROBLEMS, DYSPHAGIA Hypertension Yes Bronchitis Yes Sleep Apnea Yes Diabetes Mellitus Type 2 Yes Other GI Yes: CONSTIPATION Hx Benign Prostatic Yes Hyperplasia Hx Incontinence Yes Hx Urinary Tract Infection Yes Other RETENTION Cellulitis Yes Clostridium Difficile Yes: 11/20/16 Sepsis Yes: 11/20/16 Prostate cancer 2004 [place] 6 on right prostate biopsies involving 5% of specimen [place] 7 on left lobe involving 75% of specimen pretreatment PSA of 9.72. Treated with radiation therapy by Dr. Cole <Ruben Walter - 07/02/17 14:57> Patient Stated Medical History Cerebrovascular Accident Yes: HEMIPLEGIA-FLACID LT Peripheral Neuropathy Yes: POLY Other HEENT SWALLOWING PROBLEMS, DYSPHAGIA Hypertension Yes Bronchitis Yes Sleep Apnea Yes Diabetes Mellitus Type 2 Yes Other GI Yes: CONSTIPATION Hx Benign Prostatic Yes Hyperplasia Hx Incontinence Yes Hx Urinary Tract Infection Yes Other RETENTION Cellulitis Yes Clostridium Difficile Yes: 11/20/16 Sepsis Yes: 11/20/16 Hypertension Diabetes type 2 Gout. CKD stage III. 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 Small left subdural hemorrhage Prostate cancer s/p radiation 2002 A-fib with RVR when hospitalized at [facility] in 11/2016 - gb sono showed cholelithiasis without cholecystitis & no pancreatic abnormalities; fatty infiltration of the liver; but abdominal CT showed acute cholecystitis ( pancreas was grossly normal); possible proctitis <Beatrice Murray - 07/02/17 13:43> Surgical History: Perc cholecystostomy 11/2016. Peg tube inserted/removed < Beatrice Murray - 07/02/17 12:02> Family History: brother with bone cancer <Beatrice Murray - 07/02/17 13:43> - Social History Smoking status: Never smoker <Beatrice Murray - 07/02/17 12:02> Alcohol intake frequency: does not drink <Beatrice Murray - 07/02/17 13:43> Current residence: Shelter <Ruben Walter - 07/02/17 14:57> Medications Home Medications Medication Instructions Recorded Confirmed Type Acetaminophen [Tylenol] 2 tab PO Q4HPRN #0 tab 01/02/16 07/02/17 History Atorvastatin Calcium 1 tab PO HS #0 tab 01/02/16 07/02/17 History Gabapentin 1 cap PO BID #0 cap 01/02/16 07/02/17 History Insulin Detemir [Levemir] 12 dose SQ HS #0 vial 01/02/16 07/02/17 History Tamsulosin HCl 0.4 mg PO DAILY #0 cap 01/02/16 07/02/17 History Albuterol Sulfate 2.5 mg AEROSOL Q2HR PRN 07/02/17 07/02/17 History Aspirin 1 tab PO DAILY 07/02/17 07/02/17 History Docusate Sodium [Colace] 1 cap PO BID 07/02/17 07/02/17 History Furosemide [Lasix] 1 tab PO DAILY 07/02/17 07/02/17 History Lisinopril [Prinivil] 10 mg PO DAILY 07/02/17 07/02/17 History Metoprolol Tartrate [Lopressor] 25 mg PO DAILY 07/02/17 07/02/17 History Polyethylene Glycol 3350 [Miralax] 17 gm PO DAILY 07/02/17 07/02/17 History dilTIAZem HCl [Diltiazem HCl] 1 tab PO TID 07/02/17 07/02/17 History <Ruben Walter - 07/02/17 14:57> Allergies Allergy/AdvReac Type Severity Reaction Status Date / Time No Known Allergies Allergy Verified 07/02/17 08:24 <Ruben Walter - 07/02/17 14:57> Exam Vital signs: Temperature 100.1 F 07/02/17 08:00 Pulse Rate 92 07/02/17 11:56 Respiratory Rate 18 07/02/17 08:00 Blood Pressure 159/85 H 07/02/17 08:00 Pulse Oximetry 94 07/02/17 08:00 <Ruben Walter - 07/02/17 14:57> Temperature 101.9 F H 07/02/17 07:46 Pulse Rate 92 07/02/17 11:56 Respiratory Rate 20 07/02/17 07:46 Blood Pressure 172/101 H 07/02/17 07:46 Pulse Oximetry 96 07/02/17 07:46 <TrevorBeatrice Sean 07/02/17 12:02> - Constitutional no acute distress, obese, cooperative <Beatrice Murray Sean 07/02/17 13:43> - Routine HEENT Exam Head: Present: normocephalic, cushingoid faces <TrevorBeatrice melchor 07/02/17 13: 43> Eye: Present: EOMI, periorbital swelling <TrevorBeatrice Estrada 07/02/17 13:43> ENT: Present: mucous membranes moist <TrevorBeatrice melchor 07/02/17 13:43> - Routine Neck Exam Present: supple. Absent: lymphadenopathy <Beatrice Murray Sean 07/02/17 13:43> - Routine Respiratory Exam Present: decreased breath sounds. Absent: dyspnea, wheezes, crackles <TrevorBeatrice 07/02/17 13:43> - Routine Cardiovascular Exam Present: RRR. Absent: no murmur <Beatrice Murray 07/02/17 13:43> - Routine Abdominal Exam Present: tenderness ( right upper quadrant) <Ruben Walter - 07/02/17 14:57> Present: soft, tenderness. Absent: organomegaly <Beatrice Murray 07/02/17 13:43> Comments: mild tenderness RUQ with palpation <Beatrice Murray 07/02/17 13:43> - Routine Extremities Exam Present: edema (mild pedal edema rajiv. lower extremities) <Beatrice Murray - 13:43> - Routine Skin Exam Present: pallor, warm. Absent: rash <Beatrice Murray - 07/02/17 13:43> - Routine Neurological Exam Present: alert <Beatrice Murray - 07/02/17 13:43> - Routine Psychiatric Exam Present: normal affect <Beatrice Murray - 07/02/17 13:43> Oncology Results - Labs CBC & Chem 7: 07/02/17 03:17 07/02/17 03:17 <Ruben Walter - 07/02/17 14:57> - Impressions Elevated LFTs and leukocytosis with left shift Selected Entries 07/02/17 02:40 Temperature 103 F H Laboratory Tests 07/02/17 07/02/17 03:17 03:17 WBC 21.6 H Total Bilirubin 1.60 H AST 59 ALT 170 H Alkaline Phosphatase 255 H B-Natriuretic Peptide 1440 H <Ruben Walter - 07/02/17 14:57> - Imaging and Cardiology CT scan - abdomen Status: image reviewed by me (Multiple cystic lesions within the pancreas with 2 lesions that have increased in size since 2010.) <Ruben Walter - 07/02/17 14:57> Additional comments: Reviewed images with Dr. Wright, radiology and discussed with Dr. Andrea <Ruben Walter - 07/02/17 14:57> Chest x-ray Additional comments: CT Scan Report Signed Patient: Niles Johnston MR#: [id number] : 1935 Age/Sex: 82 / M ADM Date: 07/02/17 Loc: MED 144-P DIS Date: = = = = = = = = = = = = = = = = = = = = = = = = = = = = = = = = = = = = = = = = = = = = = = = = = = = = = = = = = = = Date of Exam: 07/02/17 Ordering Provider: Marco Antonio uBstos DO Type of Exam(s): CT abdomen pelvis w con Reason for Exam(s): Fever, elev LFTs Indication: Fever, elev LFTs PROCEDURE: CT abdomen pelvis w con: Encounter: Initial Comparison: March 16, 2011 Technique: Axial CT images were performed through the abdomen and pelvis after the administration of intravenous contrast. Coronal and sagittal two-dimensional reformats. Automated Exposure Control and Iterative Reconstruction dose reducing techniques were utilized. Contrast: Visipaque 320 100 mL Findings: The lung bases show mild atelectasis. Cardiomegaly. Liver shows a small inferior cyst in the right lobe. Mild intrahepatic bile duct prominence probably related to age. Gallstone within the gallbladder. Slight pericholecystic inflammation or gallbladder wall edema. The spleen is normal. 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 There is a stable cyst in the uncinate process. Large bilateral renal cysts, showing interval growth since the prior study. No abdominal or pelvic lymphadenopathy. Whitten catheter within a decompressed bladder. Mild prostate enlargement. Sigmoid diverticulosis without diverticulitis. No bowel obstruction. The appendix is normal. Bone windows show no acute findings. Impression: 1. Cholelithiasis with possible gallbladder wall thickening versus decompressed state. Consider right upper quadrant ultrasound for further evaluation. 2. 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 There is a preliminary report by [facility]. . 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 This was present in 2010 and appears to be fairly stable in 2017 except for 2 cystic lesions that have increased in size this is associated with increased risk of pancreatic neoplasm. Patient's comorbid conditions do significantly limit the testing and treatment that he could have however if we were to diagnose a pancreatic malignancy would consider more comfort measures rather than continued aggressive therapy for his disease. Would recommend MRCP along with CEA and CA-19-9 2. Acute cholecystitis with leukocytosis and fever. UTD about IPMN DIAGNOSIS The approach to the diagnosis of pancreatic cystic neoplasms typically starts with cross-sectional imaging (magnetic resonance imaging with magnetic resonance cholangiopancreatography or computed tomography). Additional evaluation with endoscopic ultrasound with fine-needle aspiration may be needed to confirm a diagnosis or to assess for malignant features. The diagnostic approach to pancreatic cystic neoplasms is discussed separately. (See "Pancreatic cystic neoplasms: Clinical manifestations, diagnosis, and management ".) EVALUATION FOR MALIGNANCY The evaluation of a patient with an intraductal papillary mucinous neoplasm (IPMN) aims to determine if the patient has or is at high-risk of developing a malignancy. Resection is typically recommended for IPMNs with high-grade dysplasia (carcinoma in situ), IPMNs that have progressed to invasive carcinoma (also referred to as invasive IPMN or malignant IPMN), and IPMNs with features concerning for malignancy or that are at high risk for developing malignancy. IPMNs not meeting these criteria are typically followed with surveillance imaging. (See 'Management' below.) While the approach to evaluating IPMNs is similar to the initial evaluation of pancreatic cystic neoplasms (PCNs), additional testing is often indicated because IPMNs have known malignant potential (as opposed to PCNs in general, which may or may not have malignant potential based on the cyst type). (See "Pancreatic cystic neoplasms: Clinical manifestations, diagnosis, and management ", section on 'Diagnostic approach'.) Cross-sectional imaging Magnetic resonance imaging with magnetic resonance cholangiopancreatography (MRCP) or a pancreatic protocol computed tomography (CT ) scan are typically the first imaging tests used to diagnose and characterize IPMN (image 1 and image 2). The studies can assess the neoplasm and its relationship to surrounding structures, may suggest there is lymph node involvement (scans can show enlargement, which suggests lymph node involvement, but they cannot confirm that nodes are involved), and can detect metastatic disease [3-6]. Both MRCP and CT are capable of detecting mural nodules. A CT scan finding of > 3 mm mural nodules within an IPMN or the duct is highly suggestive of malignancy [7]. Compared with endoscopic retrograde cholangiopancreatography ( ERCP), MRCP is more sensitive for differentiating mural nodules from mucin globs since mucin has the same signal intensity as pancreatic fluid [3,7-10]. MRCP is also superior for demonstrating the internal architecture of the main duct and the extent of IPMN. However, MRCP is inferior to ERCP in demonstrating peripheral ductal abnormalities [11] and in the ability to obtain tissue or perform therapeutic interventions. The most sensitive test for the detection of mural nodules is an endoscopic ultrasound. (See 'Endoscopic ultrasound with fine -needle aspiration' below.) Indications for additional evaluation Additional evaluation with endoscopic ultrasound (EUS) with fine-needle aspiration (FNA) may not be needed if there are clear indications for surgery demonstrated on cross-sectional imaging, such as IPMN with a main pancreatic duct diameter 10 mm, an enhancing solid component within the IPMN, or if the patient has obstructive jaundice or other symptoms attributable to the IPMN (algorithm 1 and algorithm 2). (See ' Management' below.) Serum tumor markers: Determination of serum levels of CA 19-9 and CEA may aid in the differentiation of IPMNs that have progressed to invasive carcinoma from noninvasive IPMNs. In a study of 142 patients undergoing surgical resection for IPMN, patients with invasive carcinoma had higher CA 19-9 and CEA levels compared with patients with noninvasive IPMN [39]. Eighty percent of patients with invasive carcinoma had one or both markers elevated, compared with 18 percent of patients with noninvasive IPMN. Using a cutoff of 37 units/mL, CA 19- 9 was 74 percent sensitive and 86 percent specific for invasive carcinoma. The sensitivity and specificity for CEA at a cutoff of 5 mcg/L were 40 and 92 percent, respectively. Taken together (ie, CA 19-9 and/or CEA positive), the tests had a sensitivity of 80 percent and a specificity of 82 percent. (See "Clinical manifestations, diagnosis, and staging of exocrine pancreatic cancer" , section on 'Role of tumor markers'.) Mucin-5AC (MUC5AC) serum levels may help differentiate high-risk IPMN from low- risk IPMN. A study found elevated MUC5AC levels in patients with high-grade dysplasia or carcinoma compared with patients with lesser degrees of dysplasia ( 20 versus 2 ng/mL) [26]. PROGNOSIS Patients who do not undergo surgery Patients with intraductal papillary mucinous neoplasm (IPMN) of the pancreas who do not have indications for surgery are still at risk for developing pancreatic cancer and require surveillance [48]. The methods used for surveillance and the frequency of surveillance depend on the type of IPMN (main duct or branch duct) and the size of the lesion. (See 'Main-duct IPMN' above and 'Branch-duct IPMN' above and "Intraductal papillary mucinous neoplasm of the pancreas (IPMN): Pathophysiology and clinical manifestations", section on 'Pancreatic malignancy' .) In a study of 60 patients with branch-duct (BD) IPMN who did not undergo surgery , invasive carcinoma subsequently developed in five patients (8 percent) and the risk of developing cancer was approximately 1 percent/year [63]. In a second study that included 170 patients who underwent surveillance, 97 patients (57 percent) ultimately had surgery [64]. The indications for surgery were endoscopic or radiographic changes in the IPMN (55 percent), concern that the IPMN may be premalignant (eg, main-duct [MD] IPMN or BD-IPMN that met resection criteria; 29 percent), and suspicious cytology (11 percent). Invasive carcinomas were present in 18 patients (19 percent of the patients who underwent resection and 11 percent of the patients overall), 11 of which were tubular carcinomas (11 percent of those undergoing resection, 6 percent of the patients overall). In a study that included 45 patients with IPMN who did not meet criteria for resection and who had at least one follow-up magnetic resonance cholangiopancreatography, no evolution of the IPMN was seen in 27 patients (60 percent) and morphologic changes (eg, increasing cyst diameter, appearance of mural nodules) developed in 18 patients (40 percent) [65]. In this series, no patient had malignant transformation. SUMMARY AND RECOMMENDATIONS Intraductal papillary mucinous neoplasm (IPMN) of the pancreas is a cystic neoplasm of the pancreas with malignant potential. It may involve the main pancreatic duct, the branch ducts, or both. Patients with IPMN involving the main duct are at increased risk of cancer compared with patients who have side- branch IPMN. (See 'Introduction' above.) The approach to the diagnosis of pancreatic cystic neoplasms typically starts with cross-sectional imaging (magnetic resonance imaging [MRI] with magnetic resonance cholangiopancreatography [MRCP] or computed tomography [CT]). Additional evaluation with endoscopic ultrasound (EUS) with fine-needle aspiration (FNA) may be needed to confirm a diagnosis or to assess for malignant features. . (See "Pancreatic cystic neoplasms: Clinical manifestations , diagnosis, and management".) The evaluation of a patient with IPMN aims to determine if the patient has or is at high-risk of developing a malignancy. MRI with MRCP or a pancreatic protocol CT scan are typically the first imaging tests used to diagnose and characterize IPMN (image 1 and image 2). These studies can assess the neoplasm and its relationship to surrounding structures, may suggest lymph node involvement, and can detect metastatic disease [3-6]. . Patient seen in conjunction with Devora Murray. I examined patient, reviewed chart reviewed lab. I participated in the development of the plan of care of this patient with Devora Murray. <Ruben Walter - 07/02/17 14:57> 1. cholelithiasis w/ possible gallbladder wall thickening and pancreatic lesions -questionable pancreatic cancer 2. sepsis Dr. Walter reviewed films w/ Dr. Wright. Will recommend MRCP for further evaluation w/ least invasive means. Have requested records from hospitalization earlier this year at [facility]. Continue supportive care. <Beatrice Murray L - 07/02/17 13:43>
--- NOTE | 2017-07-02 18:08 | Magnetic Resonance Report ---
Indication: ? pancreatic CA PROCEDURE: MR MRCP: Encounter: Initial Comparison: CT abdomen from today Technique: Multiplanar multisequence MR imaging of the abdomen was performed with thick slab respiratory gated heavily T2-weighted MRCP images of the biliary tree. Findings: No intra or extrahepatic bile duct dilatation. There is no evidence of a common duct stone or filling defect. Gallstones again noted within the gallbladder. Liver shows a small cyst in the inferior right lobe is otherwise normal in signal intensity. Multiple bilateral renal cysts as seen on the prior study. There are T2 hyperintense cystic lesions within the body, head and tail of the pancreas. 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 No solid appearing pancreatic mass. No pancreatic ductal dilatation is seen. No acute findings identified. Impression: No evidence of a common duct stone. .
[2017-07-02] MEDS: ACETAMINOPHEN 650 MG SUPPOSITORY PR PRN (19:45)
[2017-07-02] MEDS ORDERED: INSULIN DETEMIR 100unit/ml INJECTION SQ SCH (21:00)
[2017-07-03] MEDS: PIPERACILLIN/TAZOBACTAM 3.375 GM in NS 100 ML IV SCH ×4 (02:30→20:11)
[2017-07-03] MEDS: METOPROLOL 5mg/5ml INJECTION IVP SCH ×2 (03:18→08:31)
[2017-07-03] MEDS: NS 1,000 ML IV SCH (09:53)
[2017-07-03] MEDS: ONDANSETRON 4 MG/2 ML INJECTION IVP PRN (09:54)
[2017-07-03] MEDS: ACETAMINOPHEN 650 MG SUPPOSITORY PR PRN (09:57)
--- NOTE | 2017-07-03 10:49 | Progress Note ---
Subjective: F/U: Severe sepsis, Acute cholecystitis Resting in bed with family present this morning. Still feels weak and tired. Less nausea. Thirsty, but not hungry. Minimal ab pain. Breathing well. Objective Vital signs: Temperature 101.1 F H 07/03/17 09:41 Pulse Rate 84 07/03/17 09:41 Respiratory Rate 18 07/03/17 08:10 Blood Pressure 195/107 H 07/03/17 09:41 Pulse Oximetry 93 07/03/17 08:10 Height/Weight/BMI: Height 1.78 m Weight 98.3 kg Body Mass Index 31.5 - Constitutional Present: mild distress, well nourished, well developed, obese, other (Appears weak and tired. Answers questions with short phrases. ) - Routine HEENT Exam Head: Present: normocephalic, atraumatic Eye: Present: EOMI, PERRL ENT: Present: mucous membranes dry - Routine Respiratory Exam Present: CTA bilaterally. Absent: respiratory distress, rhonchi, stridor, wheezes, crackles - Routine Cardiovascular Exam Present: RRR - Routine Abdominal Exam Present: soft, non distended, non tender. Absent: normoactive bowel sounds ( slight decrease ), rebound, guarding - Routine Extremities Exam Present: no edema. Absent: cyanosis, clubbing - Routine Musculoskeletal Exam Musculoskeletal: Present: no clubbing or cyanosis - Routine Skin Exam Present: dry, warm - Routine Neurological Exam Present: alert, moving all extremities, vision grossly intact, hearing grossly intact - Routine Psychiatric Exam Absent: anxious, agitated Results - Labs CBC & Chem 7: 07/03/17 04:40 07/03/17 04:40 Assessment and Plan (1) Severe sepsis Current visit: Yes Status: Acute DVT Prophylaxis: SCD's Resuscitation Status: Do Not Resuscitate Assessment and Plan: IMPRESSION Severe sepsis based on lactate of 2.2 and SIRS criteria of fever, leukocytosis, tachycardia, tachypnea (2012 guidelines) Cholelithiasis with suspected chronic cholecystitis Likely recently passed gallstone. Hepatitis - secondary to above Elevated LFTs and coagulopathy with INR of 1.29 - LFTs trending down from outpatient setting Leukocytosis Hypernatremia (POA) T2 hyperintense cystic lesions within the body, head and tail of the pancreas. 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 No solid appearing pancreatic mass. Hypertension Diabetes type 2 Gout. CKD stage III. 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 Small left subdural hemorrhage Prostate cancer s/p radiation 2002 A-fib with RVR when hospitalized at [facility] in 11/2016 GB sono showed cholelithiasis without cholecystitis & no pancreatic abnormalities - fatty infiltration of the liver Abdominal CT showed acute cholecystitis (pancreas was grossly normal); possible proctitis Plan MRCP from yesterday showing no biliary mass or obstruction. Likely passed stone in days preceding hospitalization which hung up and subsequently passed. WBC decreasing. Bilirubin normalized. LFT trending down. Will continue with Zosyn for antimicrobial coverage. Advance to clear liquids - baseline diet is Mech soft with syrup thick. Speech to check swallow function. Change IVF to 1/2NS with 20 KCl at 100cc/hr as sodium increased to 149. BP increased - will restart diltiazem and metoprolol. Hold Lasix and lisinopril. May restart home meds, holding statin due to elevated LFT. Blood sugars stable currently - will hold on restarting Levemir for now. Continue to monitor sugars. Clinically improving, but still very ill. Needs continued inpatient support. Recheck CMP in am due to resolving hepatitis. Repeat CBC in am due to resolving sepsis and leukocytosis. Discussed lab and MRCP findings with family. Time spent with patient care 35 minutes. - Time spent with patient greater than 35 minutes Hospital Course Summary Disclaimer: The visit summary below is not to be considered part of the above Progress Note. Hospital Course: 07/02/17 Admission IMPRESSION Severe sepsis based on lactate of 2.2 and SIRS criteria of fever, leukocytosis, tachycardia, tachypnea (2012 guidelines) Cholelithiasis with suspected chronic cholecystitis Elevated LFTs and coagulopathy with INR of 1.29 - LFTs trending down from outpatient setting Hypertension Diabetes type 2 Gout. CKD stage III. 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 Small left subdural hemorrhage Prostate cancer s/p radiation 2002 A-fib with RVR when hospitalized at [facility] in 11/2016 - GB sono showed cholelithiasis without cholecystitis & no pancreatic abnormalities - fatty infiltration of the liver Abdominal CT showed acute cholecystitis (pancreas was grossly normal); possible proctitis PLAN Admit, inpt status under Dr. Andrea. IVF: He had 2L of IVF bolused in the ED. He is not hypotensive nor is lactate > 4 to suggest shock. Will hold off on additional IVF at this time. 2nd lactate was high at 2.2 - will repeat later this am. Check procalcitonin. UA and CXR neg for infection. Follow results of blood cultures. Zosyn empirically. Suspected source for sepsis is GB. Consult Dr. Lopez - case discussed in depth with him. He reviewed CT with Dr. Wright - pancreatic cancer is actually a very very low probability. Consult Dr. Walter - case discussed with him. NPO; pain and nausea meds available PRN. Home meds - hold insulin and oral meds. Start metoprolol 5 mg IV q6h for elevated bp. Check BGM QID, have SSI available. Likely can DC Whitten soon. Discussed with family and with his son Pradip (DPOA) who is in [place] - proceed with workup so they can make informed decisions about treatment. DNR. 07/03/17 MRCP from yesterday showing no biliary mass or obstruction. Likely passed stone in days preceding hospitalization which hung up and subsequently passed. WBC decreasing. Bilirubin normalized. LFT trending down. Will continue with Zosyn for antimicrobial coverage. Advance to clear liquids - baseline diet is Mech soft with syrup thick. Speech to check swallow function. Change IVF to 1/2NS with 20 KCl at 100cc/hr as sodium increased to 149. BP increased - will restart diltiazem and metoprolol. Hold Lasix and lisinopril. May restart home meds, holding statin due to elevated LFT. Blood sugars stable currently - will hold on restarting Levemir for now. Continue to monitor sugars. Clinically improving, but still very ill. Needs continued inpatient support. Recheck CMP in am due to resolving hepatitis. Repeat CBC in am due to resolving sepsis and leukocytosis. Discussed lab and MRCP findings with family.
[2017-07-03] MEDS: 1/2 NS with KCL 20mEq 1,000 ML IV SCH ×2 (11:06→22:42)
[2017-07-03] MEDS: DiltiaZEM IR 60 MG TABLET PO SCH ×2 (11:07→16:11)
[2017-07-03] MEDS ORDERED: FALL RISK - PHARMACY CONSULT XX ONE (11:31)
[2017-07-03] MEDS: INSULIN ASPART 100unit/ml INJECTION SQ PRN (14:32)
--- NOTE | 2017-07-03 20:06 | Consultation ---
DATE OF CONSULTATION 07/02/2017 HISTORY OF PRESENT ILLNESS This patient is 82 years old. This patient was hospitalized at [facility] in November 2016. A gallbladder sonogram performed during that hospitalization showed cholelithiasis without cholecystitis. An abdominal CT scan showed acute cholecystitis. The patient was thought by surgeons at [facility] at this time to not be a surgical candidate. The patient did undergo percutaneous cholecystostomy during the hospitalization at [facility]. This patient has had intermittent fevers for the past two weeks. His temperature was as high as 102.3 degrees at one point. The patient began having nausea and vomiting on 06/28/2017. The patient did have some laboratory studies performed on 06/28/2017. Total bilirubin was 3.5 at that time. ALT was 508. AST was 256. Alkaline phosphatase was 319. White blood cell count was 13,800. The patient was noted to be jaundiced. Urine had an orange color. The patient did continue to have the fever, nausea and vomiting. He seemed to be improved somewhat when he was evaluated by his primary care physician on 06/30/2017. He seemed to be worse again on 07/01/2017. The patient was brought to [facility] Emergency Room for evaluation early on the morning of 07/02/2017. At the time of emergency room evaluation early on the morning of 07/01/2017, the white blood cell count was noted to be 21,600 with 5 bands. Total bilirubin was 1.6. AST was 58. ALT was 170. Alkaline phosphatase was 255. Serum lipase was 26. Urinalysis and chest x-ray were negative for any infection source. The patient did undergo a CT scan of the abdomen and pelvis at the time of evaluation at the emergency room on 2016. The CT scan showed cholelithiasis. The CT scan showed some possible gallbladder wall thickening versus a decompressed state of the gallbladder. Bile ducts were not dilated. 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 These were slightly larger compared to the appearance on a previous CT scan performed at [facility] in 2010. The 07/02/2017 CT scan showed some sigmoid colon diverticulosis but no diverticulitis. The appendix appeared normal. The patient was admitted to [facility] from the emergency room on the morning of 07/02/2017 for further evaluation and treatment of severe sepsis. PAST MEDICAL HISTORY Previous operations and procedures: 1. Insertion of percutaneous endoscopic gastrostomy tube. This may have been in July [address] [facility]. The patient was hospitalized at 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 The percutaneous endoscopic gastrostomy tube has subsequently been removed. 2. Percutaneous cholecystostomy in [address] [facility] at [place], [place]. PHYSICAL EXAMINATION VITAL SIGNS: Temperature was 101.9 degrees Fahrenheit oral at the time of admission to [facility] today. Pulse was 106. Respiratory rate was 20. Blood pressure was 172/101. Oxygen saturation was 96% on room air. ABDOMEN: The abdomen is soft at this time. No abdominal masses. There is an old left upper quadrant percutaneous endoscopic gastrostomy tube scar. LABORATORY DATA White blood cell count is 21,600 with 5 bands. Hemoglobin is 14.6. Hematocrit is 44.3. INR is 1.29. Total bilirubin is 1.6. AST is normal at 59. ALT is 170. Alkaline phosphatase is 255. Plasma lactate is 2.2. Procalcitonin is 1.58. Serum lipase is 26. IMAGING DATA CT scan of the abdomen and pelvis performed on 07/02/2017 showed cholelithiasis with possible gallbladder wall thickening versus decompressed state. There is a gallstone present within the gallbladder. Bile ducts are not dilated. The CT scan does show some cystic pancreatic lesions probably due to side branch IPMNS. These pancreatic lesions are slightly increased in size compared to the appearance on a 2010 CT scan of the abdomen and pelvis performed at [facility]. There is some sigmoid colon diverticulosis without diverticulitis. The appendix is normal. The patient did undergo a gallbladder sonogram on 07/02/2017. The gallbladder wall is thickened. The gallbladder is contracted, however. There are gallstones present. Sonographic Henning's sign was negative. The intrahepatic and extrahepatic biliary system has a normal caliber with the common duct measuring 6 mm in dimension. There are several cystic lesions in the pancreas thought to probably represent side branch IPMNS. IMPRESSION 1. Severe sepsis. A urinalysis and chest x-ray are negative for infection source. This may be due to some recent ascending cholangitis associated with a common duct stone which has now passed from the common duct into the duodenum. It could be due to acute cholecystitis. 2. Chronic cholecystitis and cholelithiasis. 3. Elevated liver function tests which are decreasing from 06/28/2017 to 2016. The patient may have passed a common duct stone which led to the transient elevation of the liver function tests. 4. 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 5. Type 2 diabetes mellitus. 6. Hypertension. 7. Stage III chronic kidney disease. 8. Residual left hemiplegia and dysphagia following intraparenchymal right basal ganglia hemorrhage in July 2015. 9. Benign prostatic hypertrophy. 10. Gout. 11. Sigmoid colon diverticulosis. RECOMMENDATIONS 1. Intravenous antibiotic treatment with Zosyn. 2. Consult Dr. Walter regarding the pancreatic lesions. 3. If the sepsis does not respond to intravenous antibiotic treatment and acute cholecystitis is suspected, the patient may need to have placement of another percutaneous cholecystostomy tube. REDDYD
[2017-07-03] MEDS: DOCUSATE SODIUM 100 MG CAPSULE PO SCH (20:12)
[2017-07-03] MEDS: GABAPENTIN 300 MG CAPSULE PO SCH (20:12)
--- NOTE | 2017-07-03 21:00 | Progress Note ---
DATE 07/03/2017 HISTORY The patient is having only minimal abdominal discomfort at this time. Nausea is less. The patient is still quite weak and tired. He is not hungry. PHYSICAL EXAMINATION VITAL SIGNS: Temperature is 101.1 degrees Fahrenheit oral. Pulse is 84. Blood pressure is 195/107. Oxygen saturation is 88% on room air. ABDOMEN: The abdomen is soft and nontender at this time. LABORATORY DATA White blood cell count is 15,000 with 7 bands today. Hemoglobin is 12.8. Hematocrit is 39.9. INR is 1.26. Total bilirubin is 0.8 today. AST is 38. ALT is 104. Alkaline phosphatase is 161. IMAGING DATA The patient did undergo an MRCP on 07/02/2017. This showed no evidence of a common duct stone. There are cystic lesions within the body, head and tail of the pancreas. These do appear to show some communication with the main pancreatic duct which would confirm these as side branch intraductal papillary mucinous tumors. There was no intrahepatic or extrahepatic bile duct dilation present at this time. There was no filling defect within the common duct. There were no solid pancreatic masses. IMPRESSION 1. Severe sepsis which appears to be improving. 2. Chronic cholecystitis and cholelithiasis. 3. Recent elevation of liver function tests which appear to be returning to normal. This could be due to recent passage of a common duct stone. 4. No common duct stone demonstrated on 07/02/2017 MRCP. 5. 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 RECOMMENDATION 1. Continue intravenous Zosyn. 2. Agree with advancing diet to clear liquid diet. MTDD
[2017-07-04] MEDS: PIPERACILLIN/TAZOBACTAM 3.375 GM in NS 100 ML IV SCH ×4 (04:02→20:52)
[2017-07-04] MEDS: DiltiaZEM IR 60 MG TABLET PO SCH ×3 (05:49→16:29)
[2017-07-04] MEDS: DOCUSATE SODIUM 100 MG CAPSULE PO SCH ×2 (08:37→20:53)
[2017-07-04] MEDS: 1/2 NS with KCL 20mEq 1,000 ML IV SCH ×2 (08:37→17:49)
[2017-07-04] MEDS: GABAPENTIN 300 MG CAPSULE PO SCH ×2 (08:37→20:54)
[2017-07-04] MEDS: TAMSULOSIN 0.4 MG CAPSULE PO SCH (08:37)
[2017-07-04] MEDS: POLYETHYL GLYCOL 3350 17gm PACKET PO SCH (08:44)
[2017-07-04] MEDS: INSULIN ASPART 100unit/ml INJECTION SQ PRN ×2 (11:11→17:48)
--- NOTE | 2017-07-04 13:17 | Progress Note ---
Subjective: F/U: Severe sepsis, Acute cholecystitis Doing okay. Appetite decrease, not really caring for the soups (would like ice cream, maybe a steak). Reports slight nausea. Minimal ab pain. Passing flatus. Breathing feels congested-not hurting as he breaths but hard to take a deep breath. No chest pressure, pain, or palpitations. Converses well. Objective Vital signs: Temperature 97.8 F 07/04/17 07:35 Pulse Rate 47 L 07/04/17 10:55 Respiratory Rate 20 07/04/17 07:35 Blood Pressure 132/69 07/04/17 10:55 Pulse Oximetry 92 07/04/17 07:35 Height/Weight/BMI: Height 1.78 m Weight 100 kg Body Mass Index 31.5 - Constitutional Present: well nourished, well developed, obese, cooperative - Routine HEENT Exam Head: Present: normocephalic, atraumatic Eye: Present: EOMI, PERRL ENT: Present: mucous membranes moist - Routine Respiratory Exam Present: decreased breath sounds. Absent: respiratory distress, rhonchi, wheezes, crackles - Routine Cardiovascular Exam Present: RRR - Routine Abdominal Exam Present: soft, normoactive bowel sounds. Absent: non distended, non tender, rebound, guarding - Routine Extremities Exam Present: no edema, pulses intact. Absent: cyanosis, clubbing - Routine Musculoskeletal Exam Musculoskeletal: Present: no clubbing or cyanosis - Routine Skin Exam Present: dry, warm - Routine Neurological Exam Present: alert, oriented X3, CN II-XII intact, motor deficit (Left hemiparesis ) , vision grossly intact, hearing grossly intact. Absent: altered mental status - Routine Psychiatric Exam Present: normal affect, normal thought process, cooperative. Absent: anxious Results - Labs CBC & Chem 7: 07/04/17 05:04 07/04/17 05:04 Assessment and Plan (1) Severe sepsis Current visit: Yes Status: Acute DVT Prophylaxis: SCD's Resuscitation Status: Do Not Resuscitate Assessment and Plan: IMPRESSION Severe sepsis based on lactate of 2.2 and SIRS criteria of fever, leukocytosis, tachycardia, tachypnea (2012 guidelines) Cholelithiasis with suspected chronic cholecystitis Likely recently passed gallstone. Hepatitis - secondary to above Elevated LFTs and coagulopathy with INR of 1.29 - LFTs trending down from outpatient setting Leukocytosis Hypernatremia (POA) T2 hyperintense cystic lesions within the body, head and tail of the pancreas. 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 No solid appearing pancreatic mass. Hypertension Diabetes type 2 Gout. CKD stage III. 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 Small left subdural hemorrhage Prostate cancer s/p radiation 2002 A-fib with RVR when hospitalized at [facility] in 11/2016 GB sono showed cholelithiasis without cholecystitis & no pancreatic abnormalities - fatty infiltration of the liver Abdominal CT showed acute cholecystitis (pancreas was grossly normal); possible proctitis Plan Clinically improving. WBC 15.7; 15.0 yesterday. ALT decreased to 90. Creatinine 1.6. Sodium 148. Advance to full liquid diet - ice cream okay - possible advance to regular foods tomorrow. Baseline diet is Mech soft with syrup thick. Speech has been consulted to evaluated swallow function. Add IS to help pulmonary toilet. PT/OT consult tomorrow to help improve functional status. Bladder retraining with cath - possible d/c Whitten tomorrow. HR with decrease - will decrease metoprolol to 12.5mg daily. BP stable. Lisinopril on hold as creatinine above baseline. Continue IVF and Zosyn for support. Recheck CMP in am due to resolving hepatitis. Repeat CBC in am due to resolving sepsis and leukocytosis. Check Lipase in am as WBC with elevation. Case discussed with Dr Lopez and family. Time spent with patient care 25 minutes. - Time spent with patient 25 - 35 minutes Hospital Course Summary Disclaimer: The visit summary below is not to be considered part of the above Progress Note. Hospital Course: 07/02/17 Admission IMPRESSION Severe sepsis based on lactate of 2.2 and SIRS criteria of fever, leukocytosis, tachycardia, tachypnea (2012 guidelines) Cholelithiasis with suspected chronic cholecystitis Elevated LFTs and coagulopathy with INR of 1.29 - LFTs trending down from outpatient setting Hypertension Diabetes type 2 Gout. CKD stage III. 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 Small left subdural hemorrhage Prostate cancer s/p radiation 2002 A-fib with RVR when hospitalized at [facility] in 11/2016 - GB sono showed cholelithiasis without cholecystitis & no pancreatic abnormalities - fatty infiltration of the liver Abdominal CT showed acute cholecystitis (pancreas was grossly normal); possible proctitis PLAN Admit, inpatient status under Dr. Andrea. IVF: He had 2L of IVF bolused in the ED. He is not hypotensive nor is lactate > 4 to suggest shock. Will hold off on additional IVF at this time. 2nd lactate was high at 2.2 - will repeat later this am. Check procalcitonin. UA and CXR neg for infection. Follow results of blood cultures. Zosyn empirically. Suspected source for sepsis is GB. Consult Dr. Lopez - case discussed in depth with him. He reviewed CT with Dr. Wright - pancreatic cancer is actually a very very low probability. Consult Dr. Walter - alayna discussed with him. NPO; pain and nausea meds available PRN. Home medications - hold insulin and oral meds. Start metoprolol 5 mg IV q6h for elevated bp. Check BGM QID, have SSI available. Likely can DC Whitten soon. Discussed with family and with his son Pradip (DPOA) who is in [place] - proceed with workup so they can make informed decisions about treatment. DNR. 07/03/17 MRCP from yesterday showing no biliary mass or obstruction. Likely passed stone in days preceding hospitalization which hung up and subsequently passed. WBC decreasing. Bilirubin normalized. LFT trending down. Will continue with Zosyn for antimicrobial coverage. Advance to clear liquids - baseline diet is Mech soft with syrup thick. Speech to check swallow function. Change IVF to 1/2NS with 20 KCl at 100cc/hr as sodium increased to 149. BP increased - will restart diltiazem and metoprolol. Hold Lasix and lisinopril. May restart home meds, holding statin due to elevated LFT. Blood sugars stable currently - will hold on restarting Levemir for now. Continue to monitor sugars. Clinically improving, but still very ill. Needs continued inpatient support. Recheck CMP in am due to resolving hepatitis. Repeat CBC in am due to resolving sepsis and leukocytosis. Discussed lab and MRCP findings with family. 07/04/17 Clinically improving. WBC 15.7; 15.0 yesterday. ALT decreased to 90. Creatinine 1.6. Sodium 148. Advance to full liquid diet - ice cream okay - possible advance to regular foods tomorrow. Baseline diet is Mech soft with syrup thick. Speech has been consulted to evaluated swallow function. Add IS to help pulmonary toilet. PT/OT consult tomorrow to help improve functional status. Bladder retraining with cath - possible d/c Whitten tomorrow. HR with decrease - will decrease metoprolol to 12.5mg daily. BP stable. Lisinopril on hold as creatinine above baseline. Continue IVF and Zosyn for support. Recheck CMP in am due to resolving hepatitis. Repeat CBC in am due to resolving sepsis and leukocytosis. Check Lipase in am as WBC with elevation.
[2017-07-05] MEDS: PIPERACILLIN/TAZOBACTAM 3.375 GM in NS 100 ML IV SCH ×5 (03:02→20:35)
[2017-07-05] MEDS: 1/2 NS with KCL 20mEq 1,000 ML IV SCH ×3 (05:14→23:55)
[2017-07-05] MEDS: DiltiaZEM IR 60 MG TABLET PO SCH ×3 (06:23→17:23)
--- NOTE | 2017-07-05 09:30 | Progress Note ---
DATE 07/04/2017 HISTORY The patient denies abdominal pain at this time. He is still quite weak and tired. He is receiving a clear liquid diet. PHYSICAL EXAMINATION VITAL SIGNS: The temperature of the patient is below 100 for the last 24 hours. Most recent temperature was 98.9 degrees Fahrenheit axillary. Pulse is 60. Blood pressure is 147/75. Oxygen is 95% on oxygen at 1 liter per minute by nasal cannula. ABDOMEN: The abdomen is soft. No abdominal masses. No localized abdominal tenderness anywhere at this time. LABORATORY DATA White blood cell count is 15,700 with 8 bands today. Hemoglobin is 11.9. Hematocrit is 36.7. Total bilirubin is 0.6. AST is 40. ALT is 90. Alkaline phosphatase is 138. IMPRESSION 1. Severe sepsis which appears to be improving. 2. Chronic cholecystitis and cholelithiasis. 3. Recent elevation of liver function tests which appear to be returning to normal. This could be due to recent passage of a common duct stone. 4. No common duct stone demonstrated on 07/02/2017 MRCP. 5. 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 6. Type 2 diabetes mellitus. 7. Hypertension. 8. Stage 3 chronic kidney disease. 9. Residual left hemiplegia and dysphagia following intraparenchymal right basal ganglia hemorrhage on July 2015. 10. Benign prostatic hypertrophy. 11. Gout. . 12. Sigmoid colon diverticulosis. RECOMMENDATION 1. Continue intravenous Zosyn. 2. Continue clear liquid diet. 3. Continue to monitor vital signs and white blood cell count with differential to monitor response to treatment with the intravenous antibiotics. MTDD
[2017-07-05] MEDS: ASPIRIN 81 MG CHEWABLE TABLET PO SCH (09:32)
[2017-07-05] MEDS: GABAPENTIN 300 MG CAPSULE PO SCH ×2 (09:32→21:56)
[2017-07-05] MEDS: TAMSULOSIN 0.4 MG CAPSULE PO SCH (09:32)
[2017-07-05] MEDS: POLYETHYL GLYCOL 3350 17gm PACKET PO SCH (09:33)
[2017-07-05] MEDS: DOCUSATE SODIUM 100 MG CAPSULE PO SCH ×2 (09:34→21:56)
--- NOTE | 2017-07-05 10:59 | Progress Note ---
Subjective: F/U: Severe sepsis, Acute cholecystitis Sitting up in chair this morning. Feeling better-wondering when he can go home. Did well with breakfast this am-no nausea or ab pain. Notes stools loose. Breathing feels okay-denies pain with breathing or congestion. Feels need to urinate-Whitten clamped for bladder retraining. Objective Vital signs: Temperature 98 F 07/05/17 07:23 Pulse Rate 61 07/05/17 07:23 Respiratory Rate 16 07/05/17 07:23 Blood Pressure 158/90 H 07/05/17 07:23 Pulse Oximetry 98 07/05/17 07:23 Height/Weight/BMI: Height 1.78 m Weight 102.6 kg Body Mass Index 31.5 - Constitutional Present: well nourished, well developed, obese, cooperative - Routine HEENT Exam Head: Present: normocephalic, atraumatic Eye: Present: EOMI, PERRL ENT: Present: mucous membranes moist - Routine Respiratory Exam Present: decreased breath sounds. Absent: respiratory distress, stridor, wheezes, crackles - Routine Cardiovascular Exam Present: RRR - Routine Abdominal Exam Present: soft, normoactive bowel sounds, non distended, non tender. Absent: guarding - Routine Extremities Exam Present: no edema. Absent: cyanosis, clubbing - Routine Musculoskeletal Exam Musculoskeletal: Present: no clubbing or cyanosis - Routine Skin Exam Present: dry, warm - Routine Neurological Exam Present: alert, CN II-XII intact, motor deficit (Left hemiparesis ), vision grossly intact, hearing grossly intact - Routine Psychiatric Exam Present: normal affect, cooperative. Absent: agitated Results - Labs CBC & Chem 7: 07/05/17 04:14 07/05/17 04:14 Assessment and Plan (1) Severe sepsis Current visit: Yes Status: Acute DVT Prophylaxis: SCD's Resuscitation Status: Do Not Resuscitate Assessment and Plan: IMPRESSION Severe sepsis based on lactate of 2.2 and SIRS criteria of fever, leukocytosis, tachycardia, tachypnea (2012 guidelines) Cholelithiasis with suspected chronic cholecystitis Likely recently passed gallstone. Hepatitis - secondary to above Elevated LFTs and coagulopathy with INR of 1.29 - LFTs trending down from outpatient setting Leukocytosis Hypernatremia (POA) T2 hyperintense cystic lesions within the body, head and tail of the pancreas. 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 No solid appearing pancreatic mass. Hypertension Diabetes type 2 Gout. CKD stage III. 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 Small left subdural hemorrhage Prostate cancer s/p radiation 2002 A-fib with RVR when hospitalized at [facility] in 11/2016 GB sono showed cholelithiasis without cholecystitis & no pancreatic abnormalities - fatty infiltration of the liver Abdominal CT showed acute cholecystitis (pancreas was grossly normal); possible proctitis Plan Continues to show improvement. WBC decreased to 11.4. No temperature elevations. Creatinine 1.5. Sodium decreased to 146 with potassium normal at 4.7. Creatinine 1.5. Increase in liver enzymes - AST increased to 70 with ALT increased to 98 from 90 yesterday. Do feel can advance diet to regular foods - speech to adjust consistency of food. Decrease IVF to 50cc/hr as diet advancing. PT/OT to help increase functional status. Remove Whitten cath. Continue IV Zosyn. Monitor lab. Case discussed with CM. Time spent with patient care 25 minutes. - Time spent with patient 25 - 35 minutes Hospital Course Summary Disclaimer: The visit summary below is not to be considered part of the above Progress Note. Hospital Course: 07/02/17 Admission IMPRESSION Severe sepsis based on lactate of 2.2 and SIRS criteria of fever, leukocytosis, tachycardia, tachypnea (2012 guidelines) Cholelithiasis with suspected chronic cholecystitis Elevated LFTs and coagulopathy with INR of 1.29 - LFTs trending down from outpatient setting Hypertension Diabetes type 2 Gout. CKD stage III. 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 Small left subdural hemorrhage Prostate cancer s/p radiation 2002 A-fib with RVR when hospitalized at [facility] in 11/2016 - GB sono showed cholelithiasis without cholecystitis & no pancreatic abnormalities - fatty infiltration of the liver Abdominal CT showed acute cholecystitis (pancreas was grossly normal); possible proctitis PLAN Admit, inpatient status under Dr. Andrea. IVF: He had 2L of IVF bolused in the ED. He is not hypotensive nor is lactate > 4 to suggest shock. Will hold off on additional IVF at this time. 2nd lactate was high at 2.2 - will repeat later this am. Check procalcitonin. UA and CXR neg for infection. Follow results of blood cultures. Zosyn empirically. Suspected source for sepsis is GB. Consult Dr. Lopez - case discussed in depth with him. He reviewed CT with Dr. Wright - pancreatic cancer is actually a very very low probability. Consult Dr. Walter - case discussed with him. NPO; pain and nausea meds available PRN. Home medications - hold insulin and oral meds. Start metoprolol 5 mg IV q6h for elevated bp. Check BGM QID, have SSI available. Likely can DC Whitten soon. Discussed with family and with his son Pradip (DPOA) who is in [place] - proceed with workup so they can make informed decisions about treatment. DNR. 07/03/17 MRCP from yesterday showing no biliary mass or obstruction. Likely passed stone in days preceding hospitalization which hung up and subsequently passed. WBC decreasing. Bilirubin normalized. LFT trending down. Will continue with Zosyn for antimicrobial coverage. Advance to clear liquids - baseline diet is Mech soft with syrup thick. Speech to check swallow function. Change IVF to 1/2NS with 20 KCl at 100cc/hr as sodium increased to 149. BP increased - will restart diltiazem and metoprolol. Hold Lasix and lisinopril. May restart home meds, holding statin due to elevated LFT. Blood sugars stable currently - will hold on restarting Levemir for now. Continue to monitor sugars. Clinically improving, but still very ill. Needs continued inpatient support. Recheck CMP in am due to resolving hepatitis. Repeat CBC in am due to resolving sepsis and leukocytosis. Discussed lab and MRCP findings with family. 07/04/17 Clinically improving. WBC 15.7; 15.0 yesterday. ALT decreased to 90. Creatinine 1.6. Sodium 148. Advance to full liquid diet - ice cream okay - possible advance to regular foods tomorrow. Baseline diet is Mech soft with syrup thick. Speech has been consulted to evaluated swallow function. Add IS to help pulmonary toilet. PT/OT consult tomorrow to help improve functional status. Bladder retraining with cath - possible d/c Whitten tomorrow. HR with decrease - will decrease metoprolol to 12.5mg daily. BP stable. Lisinopril on hold as creatinine above baseline. Continue IVF and Zosyn for support. Recheck CMP in am due to resolving hepatitis. Repeat CBC in am due to resolving sepsis and leukocytosis. Check Lipase in am as WBC with elevation. 07/05/17 Continues to show improvement. WBC decreased to 11.4. No temperature elevations. Creatinine 1.5. Sodium decreased to 146 with potassium normal at 4.7. Creatinine 1.5. Increase in liver enzymes - AST increased to 70 with ALT increased to 98 from 90 yesterday. Do feel can advance diet to regular foods - speech to adjust consistency of food. Decrease IVF to 50cc/hr as diet advancing. PT/OT to help increase functional status. Remove Whitten cath. Continue IV Zosyn. Monitor lab.
--- NOTE | 2017-07-05 13:36 | Progress Note ---
DATE 07/05/2017 HISTORY The patient is sitting up in a chair this morning. He is more alert and oriented. He states he is feeling better. He is talking more. The patient denies any abdominal pain this morning. He is tolerating a clear liquid diet. EXAM VITAL SIGNS: Temperature is 98 degrees Fahrenheit oral. Pulse is 61. Respiratory rate is 16. Blood pressure is 158/90. Oxygen saturation is 98% on oxygen at 1 liter per minute by nasal cannula. ABDOMEN: The abdomen is soft and nontender. LABORATORY DATA White blood cell count is 11,400 today with no bands. Hemoglobin is 12.1. Hematocrit is 36.8. Total bilirubin is 0.5. AST is 70. ALT is 98. Alkaline phosphatase is 123. IMPRESSION 1. Severe sepsis which appears be improving. 2. Chronic cholecystitis and cholelithiasis. 3. Recent elevation of liver function tests which are gradually returning to normal. Total bilirubin and alkaline phosphatase are normal today. The recent elevation of liver function tests could very well have been due to passage of a common bile duct stone. 4. No common bile duct stone demonstrated on 07/02/2017 MRCP. 5. 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 6. Type 2 diabetes mellitus. 7. Hypertension. 8. Stage 3 chronic kidney disease. 9. Residual left hemiplegia and dysphagia following intraparenchymal right basal ganglia hemorrhage in July 2015. 10. Benign prostatic hypertrophy. 11. Gout. 12. Sigmoid colon diverticulosis. RECOMMENDATION 1. Continue intravenous Zosyn. 2. Advance diet as recommended by Speech Therapy since the patient has oropharyngeal dysphagia. MTDD
--- NOTE | 2017-07-05 13:49 | Progress Note ---
Oncology Subjective General: No fever, no night sweats Eyes: No redness, no pain, no diplopia ENT: No mouth sores, no trouble swallowing Cardiac: No chest pain no palpitations Pulmonary: No cough, no shortness of breath, no wheezing Abdomen: No pain, no nausea vomiting, no diarrhea or constipation : No urgency, frequency, dysuria, or hematuria Musculoskeletal: No arthritis, no myalgias Neurological: No headaches, no focal weakness Skin: No rash, no sores Psychiatric: No anxiety, no depression Alone in room. More alert today. States feeling better. "Probably going home tomorrow." Denies abd. pain. States loose stools. <Beatrice Murray - 07/05/17 17:36> Exam Vital signs: Temperature 96.7 F L 07/07/17 07:00 Pulse Rate 49 L 07/07/17 07:54 Respiratory Rate 12 07/07/17 07:00 Blood Pressure 187/103 H 07/07/17 07:00 Pulse Oximetry 96 07/07/17 07:00 <Ruben Walter - 07/08/17 16:20> Temperature 98 F 07/05/17 07:23 Pulse Rate 57 L 07/05/17 08:00 Respiratory Rate 16 07/05/17 07:23 Blood Pressure 158/90 H 07/05/17 07:23 Pulse Oximetry 98 07/05/17 07:23 <Beatrice Murray - 07/05/17 13:49> - Constitutional no acute distress, well nourished, well developed, obese <Beatrice Murray - 17:36> - Routine HEENT Exam Head: Present: normocephalic <Beatrice Murray 07/05/17 17:36> Eye: Present: EOMI <Beatrice Murray 07/05/17 17:36> ENT: Present: mucous membranes moist <Beatrice Murray 07/05/17 17:36> - Routine Neck Exam Present: supple. Absent: lymphadenopathy <Beatrice Murray 07/05/17 17:36> - Routine Respiratory Exam Present: diminished air movement <Beatrice Murray 07/05/17 17:36> - Routine Cardiovascular Exam Present: RRR. Absent: no murmur <Beatrice Murray 07/05/17 17:36> - Routine Abdominal Exam Present: soft, non tender <Beatrice Murray - 07/05/17 17:36> - Routine Extremities Exam Present: edema <Beatrice Murray - 07/05/17 17:36> - Routine Skin Exam Present: dry, warm <Beatrice Murray - 07/05/17 17:36> - Routine Neurological Exam Present: alert, oriented X3 <Beatrice Murray - 07/05/17 17:36> - Routine Psychiatric Exam Present: normal affect, normal thought process <Beatrice Murray - 07/05/17 17: 36> Oncology Results - Labs CBC & Chem 7: 07/07/17 04:04 07/07/17 04:04 <Ruben Walter D - 07/08/17 16:20> Labs: Short CBC 07/05/17 Range/Units 04:14 WBC 11.4 H (4.5-11.0) T/MM3 Hgb 12.1 L (13.5-17.5) GM/DL Hct 36.8 L (41-53) % Plt Count 226 (130-400) T/MM3 BMP 07/05/17 04:14 Sodium 146 H Potassium 3.7 Chloride 113 H Carbon Dioxide 23 BUN 21.0 H Creatinine 1.5 Glucose 99 Calcium 8.2 L Liver Function 07/05/17 Range/Units 04:14 Total Bilirubin 0.50 (0.20-1.30) MG/DL AST 70 H D (17-59) U/L ALT 98 H (21-72) U/L Alkaline Phosphatase 123 (38-126) U/L Albumin 2.8 L (3.5-5.0) G/DL Impression: 1. Abnormal gallbladder that could be due to acute or chronic cholecystitis. Nuclear medicine hepatobiliary scan may be helpful for further evaluation. 2. Hepatic steatosis. 3. 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 Multiplanar multisequence MR imaging of the abdomen was performed with thick slab respiratory gated heavily T2-weighted MRCP images of the biliary tree. Impression: No evidence of a common duct stone. <Beatrice Murray L - 07/05/17 13:52> Assessment and Plan Assessment and Plan: Patient seen in approximately 1 PM on 07/05/17. MRI showed no worrisome findings. I further discussed the findings of the MRI that showed nothing that was worrisome for pancreatic malignancy with the patient. As it is been fairly stable over 6 years would repeat scans if there were symptoms. <Jose AngelRuben D - 07/08/17 16:20> CT scan showing classic findings of intraductal papillary mucinous neoplasm of the pancreas. This was present in 2010 and appears to be fairly stable in 2017 except for 2 cystic lesions that have increased in size this is associated with increased risk of pancreatic neoplasm. Patient's comorbid conditions do significantly limit the testing and treatment that he could have however if we were to diagnose a pancreatic malignancy would consider more comfort measures rather than continued aggressive therapy for his disease. Would recommend MRCP along with CEA and CA-19-9 2. Acute cholecystitis with leukocytosis and fever. UTD about IPMN DIAGNOSIS The approach to the diagnosis of pancreatic cystic neoplasms typically starts with cross-sectional imaging (magnetic resonance imaging with magnetic resonance cholangiopancreatography or computed tomography). Additional evaluation with endoscopic ultrasound with fine-needle aspiration may be needed to confirm a diagnosis or to assess for malignant features. The diagnostic approach to pancreatic cystic neoplasms is discussed separately. (See "Pancreatic cystic neoplasms: Clinical manifestations, diagnosis, and management ".) EVALUATION FOR MALIGNANCY The evaluation of a patient with an intraductal papillary mucinous neoplasm (IPMN) aims to determine if the patient has or is at high-risk of developing a malignancy. Resection is typically recommended for IPMNs with high-grade dysplasia (carcinoma in situ), IPMNs that have progressed to invasive carcinoma (also referred to as invasive IPMN or malignant IPMN), and IPMNs with features concerning for malignancy or that are at high risk for developing malignancy. IPMNs not meeting these criteria are typically followed with surveillance imaging. (See 'Management' below.) While the approach to evaluating IPMNs is similar to the initial evaluation of pancreatic cystic neoplasms (PCNs), additional testing is often indicated because IPMNs have known malignant potential (as opposed to PCNs in general, which may or may not have malignant potential based on the cyst type). (See "Pancreatic cystic neoplasms: Clinical manifestations, diagnosis, and management ", section on 'Diagnostic approach'.) Cross-sectional imaging Magnetic resonance imaging with magnetic resonance cholangiopancreatography (MRCP) or a pancreatic protocol computed tomography (CT ) scan are typically the first imaging tests used to diagnose and characterize IPMN (image 1 and image 2). The studies can assess the neoplasm and its relationship to surrounding structures, may suggest there is lymph node involvement (scans can show enlargement, which suggests lymph node involvement, but they cannot confirm that nodes are involved), and can detect metastatic disease [3-6]. Both MRCP and CT are capable of detecting mural nodules. A CT scan finding of > 3 mm mural nodules within an IPMN or the duct is highly suggestive of malignancy [7]. Compared with endoscopic retrograde cholangiopancreatography ( ERCP), MRCP is more sensitive for differentiating mural nodules from mucin globs since mucin has the same signal intensity as pancreatic fluid [3,7-10]. MRCP is also superior for demonstrating the internal architecture of the main duct and the extent of IPMN. However, MRCP is inferior to ERCP in demonstrating peripheral ductal abnormalities [11] and in the ability to obtain tissue or perform therapeutic interventions. The most sensitive test for the detection of mural nodules is an endoscopic ultrasound. (See 'Endoscopic ultrasound with fine -needle aspiration' below.) Indications for additional evaluation Additional evaluation with endoscopic ultrasound (EUS) with fine-needle aspiration (FNA) may not be needed if there are clear indications for surgery demonstrated on cross-sectional imaging, such as IPMN with a main pancreatic duct diameter 10 mm, an enhancing solid component within the IPMN, or if the patient has obstructive jaundice or other symptoms attributable to the IPMN (algorithm 1 and algorithm 2). (See ' Management' below.) Serum tumor markers: Determination of serum levels of CA 19-9 and CEA may aid in the differentiation of IPMNs that have progressed to invasive carcinoma from noninvasive IPMNs. In a study of 142 patients undergoing surgical resection for IPMN, patients with invasive carcinoma had higher CA 19-9 and CEA levels compared with patients with noninvasive IPMN [39]. Eighty percent of patients with invasive carcinoma had one or both markers elevated, compared with 18 percent of patients with noninvasive IPMN. Using a cutoff of 37 units/mL, CA 19- 9 was 74 percent sensitive and 86 percent specific for invasive carcinoma. The sensitivity and specificity for CEA at a cutoff of 5 mcg/L were 40 and 92 percent, respectively. Taken together (ie, CA 19-9 and/or CEA positive), the tests had a sensitivity of 80 percent and a specificity of 82 percent. (See "Clinical manifestations, diagnosis, and staging of exocrine pancreatic cancer" , section on 'Role of tumor markers'.) Mucin-5AC (MUC5AC) serum levels may help differentiate high-risk IPMN from low- risk IPMN. A study found elevated MUC5AC levels in patients with high-grade dysplasia or carcinoma compared with patients with lesser degrees of dysplasia ( 20 versus 2 ng/mL) [26]. PROGNOSIS Patients who do not undergo surgery Patients with intraductal papillary mucinous neoplasm (IPMN) of the pancreas who do not have indications for surgery are still at risk for developing pancreatic cancer and require surveillance [48]. The methods used for surveillance and the frequency of surveillance depend on the type of IPMN (main duct or branch duct) and the size of the lesion. (See 'Main-duct IPMN' above and 'Branch-duct IPMN' above and "Intraductal papillary mucinous neoplasm of the pancreas (IPMN): Pathophysiology and clinical manifestations", section on 'Pancreatic malignancy' .) In a study of 60 patients with branch-duct (BD) IPMN who did not undergo surgery , invasive carcinoma subsequently developed in five patients (8 percent) and the risk of developing cancer was approximately 1 percent/year [63]. In a second study that included 170 patients who underwent surveillance, 97 patients (57 percent) ultimately had surgery [64]. The indications for surgery were endoscopic or radiographic changes in the IPMN (55 percent), concern that the IPMN may be premalignant (eg, main-duct [MD] IPMN or BD-IPMN that met resection criteria; 29 percent), and suspicious cytology (11 percent). Invasive carcinomas were present in 18 patients (19 percent of the patients who underwent resection and 11 percent of the patients overall), 11 of which were tubular carcinomas (11 percent of those undergoing resection, 6 percent of the patients overall). In a study that included 45 patients with IPMN who did not meet criteria for resection and who had at least one follow-up magnetic resonance cholangiopancreatography, no evolution of the IPMN was seen in 27 patients (60 percent) and morphologic changes (eg, increasing cyst diameter, appearance of mural nodules) developed in 18 patients (40 percent) [65]. In this series, no patient had malignant transformation. SUMMARY AND RECOMMENDATIONS Intraductal papillary mucinous neoplasm (IPMN) of the pancreas is a cystic neoplasm of the pancreas with malignant potential. It may involve the main pancreatic duct, the branch ducts, or both. Patients with IPMN involving the main duct are at increased risk of cancer compared with patients who have side- branch IPMN. (See 'Introduction' above.) The approach to the diagnosis of pancreatic cystic neoplasms typically starts with cross-sectional imaging (magnetic resonance imaging [MRI] with magnetic resonance cholangiopancreatography [MRCP] or computed tomography [CT]). Additional evaluation with endoscopic ultrasound (EUS) with fine-needle aspiration (FNA) may be needed to confirm a diagnosis or to assess for malignant features. . (See "Pancreatic cystic neoplasms: Clinical manifestations , diagnosis, and management".) The evaluation of a patient with IPMN aims to determine if the patient has or is at high-risk of developing a malignancy. MRI with MRCP or a pancreatic protocol CT scan are typically the first imaging tests used to diagnose and characterize IPMN (image 1 and image 2). These studies can assess the neoplasm and its relationship to surrounding structures, may suggest lymph node involvement, and can detect metastatic disease [3-6]. . Patient seen in conjunction with Devora Murray. I examined patient, reviewed chart reviewed lab. I participated in the development of the plan of care of this patient with Devora Murray. I discussed with patient at this time his tests do not indicate findings that indicate any pancreatic malignancy. We will follow on an as needed basis. Matter of factly replies "That's a good thing." He is anxious to return home. <Beatrice Murray - 07/05/17 17:36> - Time Spent With Patient Total time spent is greater than 50% in coordination of care (as documented) at patient's floor/unit and/or counseling patient: <Ruben Walter - 07/08/17 16:20> Total time spent is greater than 50% in coordination of care (as documented) at patient's floor/unit and/or counseling patient: <Beatrice Murray - 07/05/17 13:49> less than 15 minutes <Beatrice Murray - 07/05/17 17:36>
[2017-07-05] MEDS: ACETAMINOPHEN 325 MG TABLET PO PRN (21:56)
[2017-07-05] MEDS: INSULIN ASPART 100unit/ml INJECTION SQ PRN (22:00)
[2017-07-06] MEDS: ONDANSETRON 4 MG/2 ML INJECTION IVP PRN (02:09)
[2017-07-06] MEDS: PIPERACILLIN/TAZOBACTAM 3.375 GM in NS 100 ML IV SCH ×4 (02:35→19:56)
[2017-07-06] MEDS: POLYETHYL GLYCOL 3350 17gm PACKET PO SCH (08:22)
[2017-07-06] MEDS: DOCUSATE SODIUM 100 MG CAPSULE PO SCH ×2 (08:22→20:45)
[2017-07-06] MEDS: TAMSULOSIN 0.4 MG CAPSULE PO SCH (08:57)
[2017-07-06] MEDS: DiltiaZEM IR 60 MG TABLET PO SCH ×3 (08:58→18:48)
[2017-07-06] MEDS: GABAPENTIN 300 MG CAPSULE PO SCH ×2 (08:58→20:46)
[2017-07-06] MEDS: ASPIRIN 81 MG CHEWABLE TABLET PO SCH (08:58)
--- NOTE | 2017-07-06 10:09 | Progress Note ---
Subjective: F/U: Severe sepsis, Acute cholecystitis Feeling well. Eating well-not feeling nausea or ab pain with eating. Denies ab pain or bloating. Breathing well-not hurting in chest or ab with deep breath. No short of air. No f/c. Wanting to go home. Objective Vital signs: Temperature 98.6 F 07/06/17 07:35 Pulse Rate 51 L 07/06/17 07:35 Respiratory Rate 16 07/06/17 07:35 Blood Pressure 173/92 H 07/06/17 07:35 Pulse Oximetry 96 07/06/17 07:35 Height/Weight/BMI: Height 1.78 m Weight 102.6 kg Body Mass Index 31.5 - Constitutional Present: moderate distress, well nourished, obese, cooperative - Routine HEENT Exam Head: Present: normocephalic, atraumatic Eye: Present: EOMI, PERRL ENT: Present: mucous membranes moist - Routine Respiratory Exam Present: CTA bilaterally, diminished air movement. Absent: respiratory distress , wheezes, crackles - Routine Cardiovascular Exam Present: bradycardia - Routine Abdominal Exam Present: soft, non distended, non tender. Absent: normoactive bowel sounds ( decrease ) - Routine Extremities Exam Present: no edema, pulses intact. Absent: cyanosis, clubbing - Routine Musculoskeletal Exam Musculoskeletal: Present: no clubbing or cyanosis - Routine Skin Exam Present: dry, warm - Routine Neurological Exam Present: alert, CN II-XII intact, motor deficit (Left hemiparesis), vision grossly intact, hearing grossly intact - Routine Psychiatric Exam Present: normal affect, cooperative, good insight, good judgment Results - Labs CBC & Chem 7: 07/06/17 04:07 07/06/17 04:07 Assessment and Plan (1) Severe sepsis Current visit: Yes Status: Acute DVT Prophylaxis: SCD's Resuscitation Status: Do Not Resuscitate Assessment and Plan: IMPRESSION Severe sepsis based on lactate of 2.2 and SIRS criteria of fever, leukocytosis, tachycardia, tachypnea (2012 guidelines) Cholelithiasis with suspected chronic cholecystitis Likely recently passed gallstone. Hepatitis - secondary to above Elevated LFTs and coagulopathy with INR of 1.29 - LFTs trending down from outpatient setting Leukocytosis Hypernatremia (POA) T2 hyperintense cystic lesions within the body, head and tail of the pancreas. 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 No solid appearing pancreatic mass. Hypertension Diabetes type 2 Gout. CKD stage III. 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 Small left subdural hemorrhage Prostate cancer s/p radiation 2002 A-fib with RVR when hospitalized at [facility] in 11/2016 GB sono showed cholelithiasis without cholecystitis & no pancreatic abnormalities - fatty infiltration of the liver Abdominal CT showed acute cholecystitis (pancreas was grossly normal); possible proctitis Plan Continue Zosyn for antimicrobial coverage - WBC 12.0 -- essentially stable from yesterday. LFT with slight increase from yesterday. Will need to continue to monitor. Bradycardia persists - metoprolol has been on hold. Will discontinue metoprolol. BP showing elevation - lisinopril on hold. Creatinine decreasing from prior days. Continue to hold lisinopril. Sodium with increase to 151. Continue oral intake of foods liquids. Continue low flow 1/2NS at 50. Clinically improving and wanting to go home. With increase of sodium and continued slight elevation of WBC, do not feel patient ready for discharge at this time. Recheck CBC in am due to leukocytosis. Repeat CMP in am due to elevated LFT and hypernatremia. Case discussed with CM. Time spent with patient care 25 minutes. Hospital Course Summary Disclaimer: The visit summary below is not to be considered part of the above Progress Note. Hospital Course: 07/02/17 Admission IMPRESSION Severe sepsis based on lactate of 2.2 and SIRS criteria of fever, leukocytosis, tachycardia, tachypnea (2012 guidelines) Cholelithiasis with suspected chronic cholecystitis Elevated LFTs and coagulopathy with INR of 1.29 - LFTs trending down from outpatient setting Hypertension Diabetes type 2 Gout. CKD stage III. 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 Small left subdural hemorrhage Prostate cancer s/p radiation 2002 A-fib with RVR when hospitalized at [facility] in 11/2016 - GB sono showed cholelithiasis without cholecystitis & no pancreatic abnormalities - fatty infiltration of the liver Abdominal CT showed acute cholecystitis (pancreas was grossly normal); possible proctitis PLAN Admit, inpatient status under Dr. Andrea. IVF: He had 2L of IVF bolused in the ED. He is not hypotensive nor is lactate > 4 to suggest shock. Will hold off on additional IVF at this time. 2nd lactate was high at 2.2 - will repeat later this am. Check procalcitonin. UA and CXR neg for infection. Follow results of blood cultures. Zosyn empirically. Suspected source for sepsis is GB. Consult Dr. Lopez - case discussed in depth with him. He reviewed CT with Dr. Wright - pancreatic cancer is actually a very very low probability. Consult Dr. Walter - case discussed with him. NPO; pain and nausea meds available PRN. Home medications - hold insulin and oral meds. Start metoprolol 5 mg IV q6h for elevated bp. Check BGM QID, have SSI available. Likely can DC Whitten soon. Discussed with family and with his son Pradip (DPOA) who is in [place] - proceed with workup so they can make informed decisions about treatment. DNR. 07/03/17 MRCP from yesterday showing no biliary mass or obstruction. Likely passed stone in days preceding hospitalization which hung up and subsequently passed. WBC decreasing. Bilirubin normalized. LFT trending down. Will continue with Zosyn for antimicrobial coverage. Advance to clear liquids - baseline diet is Mech soft with syrup thick. Speech to check swallow function. Change IVF to 1/2NS with 20 KCl at 100cc/hr as sodium increased to 149. BP increased - will restart diltiazem and metoprolol. Hold Lasix and lisinopril. May restart home meds, holding statin due to elevated LFT. Blood sugars stable currently - will hold on restarting Levemir for now. Continue to monitor sugars. Clinically improving, but still very ill. Needs continued inpatient support. Recheck CMP in am due to resolving hepatitis. Repeat CBC in am due to resolving sepsis and leukocytosis. Discussed lab and MRCP findings with family. 07/04/17 Clinically improving. WBC 15.7; 15.0 yesterday. ALT decreased to 90. Creatinine 1.6. Sodium 148. Advance to full liquid diet - ice cream okay - possible advance to regular foods tomorrow. Baseline diet is Mech soft with syrup thick. Speech has been consulted to evaluated swallow function. Add IS to help pulmonary toilet. PT/OT consult tomorrow to help improve functional status. Bladder retraining with cath - possible d/c Whitten tomorrow. HR with decrease - will decrease metoprolol to 12.5mg daily. BP stable. Lisinopril on hold as creatinine above baseline. Continue IVF and Zosyn for support. Recheck CMP in am due to resolving hepatitis. Repeat CBC in am due to resolving sepsis and leukocytosis. Check Lipase in am as WBC with elevation. 07/05/17 Continues to show improvement. WBC decreased to 11.4. No temperature elevations. Creatinine 1.5. Sodium decreased to 146 with potassium normal at 4.7. Creatinine 1.5. Increase in liver enzymes - AST increased to 70 with ALT increased to 98 from 90 yesterday. Do feel can advance diet to regular foods - speech to adjust consistency of food. Decrease IVF to 50cc/hr as diet advancing. PT/OT to help increase functional status. Remove Whitten cath. Continue IV Zosyn. 07/06/17 Continue Zosyn for antimicrobial coverage - WBC 12.0 -- essentially stable from yesterday. LFT with slight increase from yesterday. Will need to continue to monitor. AST 77 with ALT 103. Bradycardia persists - metoprolol has been on hold. Will discontinue metoprolol. BP showing elevation - lisinopril on hold. Creatinine decreasing from prior days. Continue to hold lisinopril. Sodium with increase to 151. Continue oral intake of foods liquids. Continue low flow 1/2NS at 50. Clinically improving and wanting to go home. With increase of sodium and continued slight elevation of WBC, do not feel patient ready for discharge at this time.
[2017-07-06] MEDS: INSULIN ASPART 100unit/ml INJECTION SQ PRN ×3 (11:38→22:14)
--- NOTE | 2017-07-06 11:55 | Progress Note ---
DATE 07/06/2017 HISTORY The patient denies abdominal pain. He has been eating well. He is not having any nausea. He is feeling better. PHYSICAL EXAMINATION VITAL SIGNS: Temperature is 98.6 degrees Fahrenheit oral. Pulse is 51. Respiratory rate is 16. Blood pressure is 173/75. Oxygen saturation is 96% on room air. ABDOMEN: The abdomen is soft and nontender. No abdominal masses. LABORATORY DATA White blood cell count is 12,000 with no bands. Hemoglobin is 12.6. Hematocrit is 37.9. Total bilirubin is 0.6. Alkaline phosphatase is 115. AST is 77. ALT is 103. Serum sodium is 151. Serum potassium is 3.7. Serum creatinine is 1.4. IMPRESSION 1. Severe sepsis which appears to be improved. 2. Chronic cholecystitis and cholelithiasis. 3. Recent elevation of liver function tests which are markedly improved. Total bilirubin and alkaline phosphatase are again normal today. The recent elevation of liver function tests could very well have been due to passage of a common bile duct stone. 4. No common bile duct stone demonstrated on 07/02/2017 MRCP. 5. 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 6. Type 2 diabetes mellitus. 7. Hypertension. 8. Stage III chronic kidney disease. 9. Residual left hemiplegia and dysphagia following intraparenchymal right basal ganglia hemorrhage in July 2015. 10. Benign prostatic hypertrophy. 11. Gout. 12. Sigmoid colon diverticulosis. RECOMMENDATION 1. Continue intravenous Zosyn. 2. Continue to monitor white blood cell count, liver function tests and electrolytes. MTDD
[2017-07-06] MEDS: 1/2 NS with KCL 20mEq 1,000 ML IV SCH (18:47)
[2017-07-06] MEDS: ACETAMINOPHEN 325 MG TABLET PO PRN (20:46)
[2017-07-07] MEDS: PIPERACILLIN/TAZOBACTAM 3.375 GM in NS 100 ML IV SCH ×3 (02:19→14:09)
[2017-07-07 07:49] VITALS: BP 187/103; RESP 12; TEMP 96.7; O2SAT 96
[2017-07-07] MEDS: DiltiaZEM IR 60 MG TABLET PO SCH ×2 (07:51→13:23)
[2017-07-07 07:59] VITALS: PULSE 49
[2017-07-07] MEDS ORDERED: PNEUMOCOCCAL 13 VACCINE 0.5ml INJECTION IM ONE (07:59)
[2017-07-07] MEDS: DOCUSATE SODIUM 100 MG CAPSULE PO SCH (08:48)
[2017-07-07] MEDS: TAMSULOSIN 0.4 MG CAPSULE PO SCH (08:48)
[2017-07-07] MEDS: GABAPENTIN 300 MG CAPSULE PO SCH (08:48)
[2017-07-07] MEDS: ASPIRIN 81 MG CHEWABLE TABLET PO SCH (08:48)
[2017-07-07] MEDS: 1/2 NS with KCL 20mEq 1,000 ML IV SCH (08:48)
[2017-07-07] MEDS: POLYETHYL GLYCOL 3350 17gm PACKET PO SCH (08:48)
--- NOTE | 2017-07-07 10:42 | Progress Note ---
Subjective: F/U: Severe sepsis, Acute cholecystitis Doing well today. Eating without problems-no ab pain or discomfort. Denies nausea. No f/c. Breathing well-not SOA or congested. No chest pressure or pain. Feels strength to baseline. Wants to go home. Objective Vital signs: Temperature 96.7 F L 07/07/17 07:00 Pulse Rate 49 L 07/07/17 07:54 Respiratory Rate 12 07/07/17 07:00 Blood Pressure 187/103 H 07/07/17 07:00 Pulse Oximetry 96 07/07/17 07:00 Height/Weight/BMI: Height 1.78 m Weight 104.3 kg Body Mass Index 31.5 - Constitutional Present: no acute distress, well nourished, well developed, obese, cooperative. Absent: combative, agitated, somnolent - Routine HEENT Exam Head: Present: normocephalic, atraumatic Eye: Present: EOMI, PERRL ENT: Present: mucous membranes moist - Routine Respiratory Exam Present: CTA bilaterally. Absent: respiratory distress, rhonchi, wheezes, crackles - Routine Cardiovascular Exam Present: no murmur, bradycardia - Routine Abdominal Exam Present: soft, normoactive bowel sounds, non distended, non tender - Routine Extremities Exam Present: cyanosis, clubbing, pulses intact - Routine Musculoskeletal Exam Musculoskeletal: Present: no clubbing or cyanosis. Absent: normal gait - Routine Skin Exam Present: dry, warm - Routine Neurological Exam Present: alert, CN II-XII intact, motor deficit (Left hemiparesis ), vision grossly intact, hearing grossly intact. Absent: altered mental status - Routine Psychiatric Exam Present: normal affect, cooperative. Absent: anxious, agitated Results - Labs CBC & Chem 7: 07/07/17 04:04 07/07/17 04:04 Assessment and Plan (1) Severe sepsis Current visit: Yes Status: Acute DVT Prophylaxis: SCD's Resuscitation Status: Do Not Resuscitate Assessment and Plan: IMPRESSION Severe sepsis based on lactate of 2.2 and SIRS criteria of fever, leukocytosis, tachycardia, tachypnea (2012 guidelines) Cholelithiasis with suspected chronic cholecystitis Likely recently passed gallstone. Hepatitis - secondary to above Elevated LFTs and coagulopathy with INR of 1.29 - LFTs trending down from outpatient setting Leukocytosis Hypernatremia (POA) Bradycardia - Metoprolol stopped secondary to persistent bradycardia T2 hyperintense cystic lesions within the body, head and tail of the pancreas. 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 No solid appearing pancreatic mass. Hypertension Diabetes type 2 Gout. CKD stage III. 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 Small left subdural hemorrhage Prostate cancer s/p radiation 2002 A-fib with RVR when hospitalized at [facility] in 11/2016 GB sono showed cholelithiasis without cholecystitis & no pancreatic abnormalities - fatty infiltration of the liver Abdominal CT showed acute cholecystitis (pancreas was grossly normal); possible proctitis Plan WBC normalized. LFT trending down. Oral drive improved. No f/c/ Will d/c to [facility] care - monitor abdominal symptoms and intake; PT to help functional status. Change Zosyn to Augmentin 875mg BIDWM and continue for 9 doses, starting tonight. Hold Lipitor due to elevated LFT - recheck CMP in 1 week. F/U with [facility] in 1 week. See orders for details Case discussed with CM. Time spent with patient care and discharge greater than 30 minutes. Hospital Course Summary Disclaimer: The visit summary below is not to be considered part of the above Progress Note. Hospital Course: 07/02/17 Admission IMPRESSION Severe sepsis based on lactate of 2.2 and SIRS criteria of fever, leukocytosis, tachycardia, tachypnea (2012 guidelines) Cholelithiasis with suspected chronic cholecystitis Elevated LFTs and coagulopathy with INR of 1.29 - LFTs trending down from outpatient setting Hypertension Diabetes type 2 Gout. CKD stage III. 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 Small left subdural hemorrhage Prostate cancer s/p radiation 2002 A-fib with RVR when hospitalized at [facility] in 11/2016 - GB sono showed cholelithiasis without cholecystitis & no pancreatic abnormalities - fatty infiltration of the liver Abdominal CT showed acute cholecystitis (pancreas was grossly normal); possible proctitis PLAN Admit, inpatient status under Dr. Andrea. IVF: He had 2L of IVF bolused in the ED. He is not hypotensive nor is lactate > 4 to suggest shock. Will hold off on additional IVF at this time. 2nd lactate was high at 2.2 - will repeat later this am. Check procalcitonin. UA and CXR neg for infection. Follow results of blood cultures. Zosyn empirically. Suspected source for sepsis is GB. Consult Dr. Lopez - alayna discussed in depth with him. He reviewed CT with Dr. Wright - pancreatic cancer is actually a very very low probability. Consult Dr. Walter - case discussed with him. NPO; pain and nausea meds available PRN. Home medications - hold insulin and oral meds. Start metoprolol 5 mg IV q6h for elevated bp. Check BGM QID, have SSI available. Likely can DC Whitten soon. Discussed with family and with his son Pradip (DPJOSE RAMON) who is in [place] - proceed with workup so they can make informed decisions about treatment. DNR. 07/03/17 MRCP from yesterday showing no biliary mass or obstruction. Likely passed stone in days preceding hospitalization which hung up and subsequently passed. WBC decreasing. Bilirubin normalized. LFT trending down. Will continue with Zosyn for antimicrobial coverage. Advance to clear liquids - baseline diet is Mech soft with syrup thick. Speech to check swallow function. Change IVF to 1/2NS with 20 KCl at 100cc/hr as sodium increased to 149. BP increased - will restart diltiazem and metoprolol. Hold Lasix and lisinopril. May restart home meds, holding statin due to elevated LFT. Blood sugars stable currently - will hold on restarting Levemir for now. Continue to monitor sugars. Clinically improving, but still very ill. Needs continued inpatient support. Recheck CMP in am due to resolving hepatitis. Repeat CBC in am due to resolving sepsis and leukocytosis. Discussed lab and MRCP findings with family. 07/04/17 Clinically improving. WBC 15.7; 15.0 yesterday. ALT decreased to 90. Creatinine 1.6. Sodium 148. Advance to full liquid diet - ice cream okay - possible advance to regular foods tomorrow. Baseline diet is Mech soft with syrup thick. Speech has been consulted to evaluated swallow function. Add IS to help pulmonary toilet. PT/OT consult tomorrow to help improve functional status. Bladder retraining with cath - possible d/c Whitten tomorrow. HR with decrease - will decrease metoprolol to 12.5mg daily. BP stable. Lisinopril on hold as creatinine above baseline. Continue IVF and Zosyn for support. Recheck CMP in am due to resolving hepatitis. Repeat CBC in am due to resolving sepsis and leukocytosis. Check Lipase in am as WBC with elevation. 07/05/17 Continues to show improvement. WBC decreased to 11.4. No temperature elevations. Creatinine 1.5. Sodium decreased to 146 with potassium normal at 4.7. Creatinine 1.5. Increase in liver enzymes - AST increased to 70 with ALT increased to 98 from 90 yesterday. Do feel can advance diet to regular foods - speech to adjust consistency of food. Decrease IVF to 50cc/hr as diet advancing. PT/OT to help increase functional status. Remove Whitten cath. Continue IV Zosyn. 07/06/17 Continue Zosyn for antimicrobial coverage - WBC 12.0 -- essentially stable from yesterday. LFT with slight increase from yesterday. Will need to continue to monitor. AST 77 with ALT 103. Bradycardia persists - metoprolol has been on hold. Will discontinue metoprolol. BP showing elevation - lisinopril on hold. Creatinine decreasing from prior days. Continue to hold lisinopril. Sodium with increase to 151. Continue oral intake of foods liquids. Continue low flow 1/2NS at 50. Clinically improving and wanting to go home. With increase of sodium and continued slight elevation of WBC, do not feel patient ready for discharge at this time. 07/07/17 WBC normalized. LFT trending down. Oral drive improved. No f/c/ Will d/c to [facility] for skilled care - monitor abdominal symptoms and intake; PT to help functional status. Change Zosyn to Augmentin 875mg BIDWM and continue for 9 doses, starting tonight. Hold Lipitor due to elevated LFT - recheck CMP in 1 week. F/U with [facility] in 1 week. See orders for details
--- NOTE | 2017-07-07 10:52 | Discharge Summary ---
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 Hepatitis - secondary to above Elevated LFTs and coagulopathy with INR of 1.29 - LFTs trending down from outpatient setting Leukocytosis Hypernatremia (POA) Bradycardia - Metoprolol stopped secondary to persistent bradycardia T2 hyperintense cystic lesions within the body, head and tail of the pancreas. 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 No solid appearing pancreatic mass. 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 Hx Small left subdural hemorrhage Prostate cancer s/p radiation 2002 Hx A-fib with RVR when hospitalized at [facility] in 11/2016 GB sono showed cholelithiasis without cholecystitis & no pancreatic abnormalities - fatty infiltration of the liver Abdominal CT showed acute cholecystitis (pancreas was grossly normal); possible proctitis - Laboratory Labs: Admit Lab 07/02/17 03:17 WBC 21.6 H Hgb 14.6 Hct 44.3 MCV 89.7 Plt Count 236 Neutrophils % (Manual) 86.0 H Band Neutrophils % 5.0 Lymphocytes % (Manual) 3.0 L Admit Lab 07/02/17 03:17 Sodium 145 H Potassium 3.7 Chloride 104 Carbon Dioxide 26 Anion Gap 15 BUN 25.0 H Creatinine 1.4 GFR Calculation 49 Glucose 187 H Calculated Osmolality 288 H Total Bilirubin 1.60 H AST 59 ALT 170 H Alkaline Phosphatase 255 H B-Natriuretic Peptide 1440 H Albumin 4.1 07/07/17 04:04 07/07/17 04:04 - Radiology Radiology: Date of Exam: 07/02/17 PROCEDURE: CT abdomen pelvis w con Findings: The lung bases show mild atelectasis. Cardiomegaly. Liver shows a small inferior cyst in the right lobe. Mild intrahepatic bile duct prominence probably related to age. Gallstone within the gallbladder. Slight pericholecystic inflammation or gallbladder wall edema. The spleen is normal. 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 There is a stable cyst in the uncinate process. Large bilateral renal cysts, showing interval growth since the prior study. No abdominal or pelvic lymphadenopathy. Whitten catheter within a decompressed bladder. Mild prostate enlargement. Sigmoid diverticulosis without diverticulitis. No bowel obstruction. The appendix is normal. Bone windows show no acute findings. Impression: 1. Cholelithiasis with possible gallbladder wall thickening versus decompressed state. Consider right upper quadrant ultrasound for further evaluation. 2. 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 -- Date of Exam: 07/02/17 PROCEDURE: MR MRCP Findings: No intra or extrahepatic bile duct dilatation. There is no evidence of a common duct stone or filling defect. Gallstones again noted within the gallbladder. Liver shows a small cyst in the inferior right lobe is otherwise normal in signal intensity. Multiple bilateral renal cysts as seen on the prior study. There are T2 hyperintense cystic lesions within the body, head and tail of the pancreas. 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 No solid appearing pancreatic mass. No pancreatic ductal dilatation is seen. No acute findings identified. Impression: No evidence of a common duct stone -- Date of Exam: 07/02/17 PROCEDURE: US gall bladder Findings: Hepatic parenchyma sonographically dense with a small cyst in the right lobe as noted on CT. The gallbladder is abnormal with wall thickening over 6 mm in thickness. The gallbladder is fairly contracted however. There are shadowing gallstones present in the neck. Sonographic Henning's sign was reportedly negative. Both the intra and extrahepatic biliary system are of normal caliber with the common duct measuring 6 mm in dimension. Pancreas again shows several cystic lesions. The largest lesion in the head measures 2.4 x 1.7 x 1.6 cm in size. No internal Doppler flow seen. The right kidney is present without collecting system dilatation. The right kidney measures 11.8 cm in length. Bilateral renal cysts. Impression: 1. Abnormal gallbladder that could be due to acute or chronic cholecystitis. Nuclear medicine hepatobiliary scan may be helpful for further evaluation. 2. Hepatic steatosis. 3. 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 History of Present Illness HPI: Niles Johnston is an 82 y/o male who Dr. Garza has been following recently because of fevers and n/v. He has had temps up to 102.3 at [place], and labs on showed elevations in LFTs: ALT 508, AST 256, AP 319, Total bili 3.5. WBC on that day was 13.8. His symptoms progressed and he was evaluated at [facility] on 07/02/17. Here, WBC was 21.6 with bands 5%; 2nd lactate trended up to 2.2; LFTs were high but improved from earlier: AST 59, ALT 170, AP 255; Total bili 1.6, INR 1.29. 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 He received IVF and was started on Zosyn. Dr. Lopez and the hospitalist department were both contacted and the patient was admitted for treatment of suspected severe sepsis and to further investigate the pancreatic abnormalities. The patient was seen in his room with his and his daughter. He was very tired after being up most of the night, and slept through most of my visit. He did, however awaken briefly to answer some questions, and his responses were appropriate. His N/V started 5 days ago (06/28); he's had intermittent fevers for about 2 weeks. Staff noticed he complained of generalized pain when they helped him move. They've been trying to push oral fluids. He's been very tired. Skin color has been jaundiced and per Dr. Garza's note he has had orange- colored urine. Per family, he was hospitalized for Cholecystitis in November - seen at [facility] but surgeons opted not to remove GB (not a surgical candidate). We reviewed labs and CT findings - pt was unable to make a decision to proceed with testing vs. comfort care strategy regarding possible pancreatic cancer. In discussion with his son/DPOA, he would like to have more testing done to make more informed decisions regarding treatment and goals of care. For complete details of the H&P refer to that document. Objective Vital signs: Temperature 96.7 F L 07/07/17 07:00 Pulse Rate 49 L 07/07/17 07:54 Respiratory Rate 12 07/07/17 07:00 Blood Pressure 187/103 H 07/07/17 07:00 Pulse Oximetry 96 07/07/17 07:00 Height/Weight/BMI: Height 1.78 m Weight 104.3 kg Body Mass Index 31.5 Hospital Course This is a general summary of the patient's hospital course. For more details refer to the complete medical record. Hospital course: 07/02/17 Admission IMPRESSION Severe sepsis based on lactate of 2.2 and SIRS criteria of fever, leukocytosis, tachycardia, tachypnea (2012 guidelines) Cholelithiasis with suspected chronic cholecystitis Elevated LFTs and coagulopathy with INR of 1.29 - LFTs trending down from outpatient setting Hypertension Diabetes type 2 Gout. CKD stage III. 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 Small left subdural hemorrhage Prostate cancer s/p radiation 2002 A-fib with RVR when hospitalized at [facility] in 11/2016 - GB sono showed cholelithiasis without cholecystitis & no pancreatic abnormalities - fatty infiltration of the liver Abdominal CT showed acute cholecystitis (pancreas was grossly normal); possible proctitis PLAN Admit, inpatient status under Dr. Andrea. IVF: He had 2L of IVF bolused in the ED. He is not hypotensive nor is lactate > 4 to suggest shock. Will hold off on additional IVF at this time. 2nd lactate was high at 2.2 - will repeat later this am. Check procalcitonin. UA and CXR neg for infection. Follow results of blood cultures. Zosyn empirically. Suspected source for sepsis is GB. Consult Dr. Lopez - case discussed in depth with him. He reviewed CT with Dr. Wright - pancreatic cancer is actually a very very low probability. Consult Dr. Walter - case discussed with him. NPO; pain and nausea meds available PRN. Home medications - hold insulin and oral meds. Start metoprolol 5 mg IV q6h for elevated bp. Check BGM QID, have SSI available. Likely can DC Whitten soon. Discussed with family and with his son Pradip (DPOA) who is in [place] - proceed with workup so they can make informed decisions about treatment. DNR. 07/03/17 MRCP from yesterday showing no biliary mass or obstruction. Likely passed stone in days preceding hospitalization which hung up and subsequently passed. WBC decreasing. Bilirubin normalized. LFT trending down. Will continue with Zosyn for antimicrobial coverage. Advance to clear liquids - baseline diet is Mech soft with syrup thick. Speech to check swallow function. Change IVF to 1/2NS with 20 KCl at 100cc/hr as sodium increased to 149. BP increased - will restart diltiazem and metoprolol. Hold Lasix and lisinopril. May restart home meds, holding statin due to elevated LFT. Blood sugars stable currently - will hold on restarting Levemir for now. Continue to monitor sugars. Clinically improving, but still very ill. Needs continued inpatient support. Recheck CMP in am due to resolving hepatitis. Repeat CBC in am due to resolving sepsis and leukocytosis. Discussed lab and MRCP findings with family. 07/04/17 Clinically improving. WBC 15.7; 15.0 yesterday. ALT decreased to 90. Creatinine 1.6. Sodium 148. Advance to full liquid diet - ice cream okay - possible advance to regular foods tomorrow. Baseline diet is Mech soft with syrup thick. Speech has been consulted to evaluated swallow function. Add IS to help pulmonary toilet. PT/OT consult tomorrow to help improve functional status. Bladder retraining with cath - possible d/c Whitten tomorrow. HR with decrease - will decrease metoprolol to 12.5mg daily. BP stable. Lisinopril on hold as creatinine above baseline. Continue IVF and Zosyn for support. Recheck CMP in am due to resolving hepatitis. Repeat CBC in am due to resolving sepsis and leukocytosis. Check Lipase in am as WBC with elevation. 07/05/17 Continues to show improvement. WBC decreased to 11.4. No temperature elevations. Creatinine 1.5. Sodium decreased to 146 with potassium normal at 4.7. Creatinine 1.5. Increase in liver enzymes - AST increased to 70 with ALT increased to 98 from 90 yesterday. Do feel can advance diet to regular foods - speech to adjust consistency of food. Decrease IVF to 50cc/hr as diet advancing. PT/OT to help increase functional status. Remove Whitten cath. Continue IV Zosyn. 07/06/17 Continue Zosyn for antimicrobial coverage - WBC 12.0 -- essentially stable from yesterday. LFT with slight increase from yesterday. Will need to continue to monitor. AST 77 with ALT 103. Bradycardia persists - metoprolol has been on hold. Will discontinue metoprolol. BP showing elevation - lisinopril on hold. Creatinine decreasing from prior days. Continue to hold lisinopril. Sodium with increase to 151. Continue oral intake of foods liquids. Continue low flow 1/2NS at 50. Clinically improving and wanting to go home. With increase of sodium and continued slight elevation of WBC, do not feel patient ready for discharge at this time. 07/07/17 WBC normalized. LFT trending down. Oral drive improved. No f/c. Will d/c to [facility] for skilled care - monitor abdominal symptoms and intake; PT to help functional status. Change Zosyn to Augmentin 875mg BIDWM and continue for 9 doses, starting tonight. Metoprolol stopped during hospitalization due to persistent bradycardia. Monitor HR. Restart Metoprolol at Dr Garza's discretion. Hold Lipitor due to elevated LFT - recheck CMP in 1 week. Could restart Lipitor once LFT normalize at Dr Garza's discretion. F/U with Greg in 1 week. See orders for details Time spent with patient: discharge greater than 30 minutes DVT Prophylaxis: SCD's Discharge Plan - Med Rec/Dispo Referrals/Follow Up: Erlin Garza MD [Physician] - [facility] Instructions: Cholecystitis (GEN) Prescriptions: New Amoxicillin/Potassium Clav [Augmentin 875-125 Tablet] 875 mg PO BIDWM #9 tab Continue Acetaminophen [Tylenol] 2 tab PO Q4HPRN #0 tab Gabapentin 1 cap PO BID #0 cap Lisinopril [Prinivil] 10 mg PO DAILY Docusate Sodium [Colace] 1 cap PO BID Polyethylene Glycol 3350 [Miralax] 17 gm PO DAILY Aspirin 1 tab PO DAILY dilTIAZem HCl [Diltiazem HCl] 1 tab PO TID Albuterol Sulfate 2.5 mg AEROSOL Q2HR PRN PRN Reason: Shortness Of Air/Wheezing Insulin Detemir [Levemir] 12 dose SQ HS #0 vial Tamsulosin HCl 0.4 mg PO DAILY #0 cap Furosemide [Lasix] 1 tab PO DAILY Discontinued Atorvastatin Calcium 1 tab PO HS #0 tab Metoprolol Tartrate [Lopressor] 25 mg PO DAILY Discharge Instructions/Outpatient Orders: Final Provider Discharge Instructions Location: Determined By Patient - Disposition [facility] ([facility]) - Attestation Attestation Narrative: 07/07/17 11:09 I have independently interviewed and examined patient prior to discharge. See my progress note from today for details. Medically stable for discharge to [facility].
--- NOTE | 2017-07-07 11:16 | Extended Care Facility Orders ---
Admission Orders Admit to:: [facility]idential Allergies/Adverse Reactions: Allergies No Known Allergies Allergy (Verified 07/02/17 08:24) Admitting Diagnosis: acute cholecytituis Admitting Physician: Hany Andrea MD Attending Physician: Dr Garza Code Status: Do Not Resuscitate Anticiapted Length of Stay: 30 days or less Rehab Potential: fair Rehab Prognosis: fair Diet: Mech soft with syrup thick liquids. No added salt, no concentrated sweets. May use Facility Protocol or Standing Orders: Yes May have flu vaccine: Yes Evaluations/Treatment: Speech (Dysphagia ), PT (Left Hemiparesis. Gen debility secondarty to acute illness ) Residential Certification: I certify that SNF services are required to be given on an Inpatient basis because of the patients need for fdc care on a continuing basis for the condition(s) for which he/she received inpatient hospital services prior to his/her transfer to the SNF. SNF inpatient care is necessary for the following reasons Indication for Residential: Med Admininistration, Other (custodial to monitor oral intake and signs of ab pain. Skilled PT/Speech for restorative measures. ) - Additional Information In Event of Arrest: Do Not Start CPR Resident is Aware of Diagnosis: Yes Referrals: Erlin Garza MD [Physician] - Additional Orders: F/U with Dr Garza in 1 week. CMP in 1 week - Dx: Elevated liver enzymes. Blood glucose checks ac meals, q hs, and prn. Hold Miralax and colace if stools are loose.
== END 2017-07-07 14:45 | DRG 872 ==
LOC: ED 02:39 → MED 06:58
PROVIDERS: ADMIT Internal Medicine; ATTEND Hospitalist